=== PATIENT | male | born 1960 | race Caucasian/White ===

== ENCOUNTER 2022-06-19 04:35 | Emergency (ER) | payer OTHER ==
[~2022-06-19] VITALS: Ht 170.2 cm; Wt 51.0 kg
[~2022-06-19 04:35] MED LIST: NICO21DI6 TD; TIOT18INH INH; VICO5TAB17 PO
[2022-06-19] MEDS ORDERED: NS 1,000 ML IV ONE (05:10)
[2022-06-19 05:29] LABS: BASO # 0.1 10^3/uL (0.0-0.2); BASO % 0.2 % (0.0-1.0); EOS % 0.1 % (0.0-3.0); HEMATOCRIT 44.9 % (42.0-52.0); LYMPH # 0.9 10^3/uL (1.5-5.0); LYMPH % 4.2 % (24.0-44.0); MEAN CORPUSCULAR HEMOGLOBIN 30.9 pg (27.0-33.0); MEAN CORPUSCULAR HGB CONC 33.4 g/dl (32.0-36.5); MEAN CORPUSCULAR VOLUME 92.4 fl (80.0-96.0); MONO # 0.5 10^3/uL (0.0-0.8); MONO % 2.2 % (2.0-8.0); NEUTROPHILS # 19.8 10^3/uL (1.5-8.5); NEUTROPHILS % 92.6 % (36.0-66.0); PLATELET COUNT, AUTOMATED 582 10^3/uL (150-450); RED BLOOD COUNT 4.86 10^6/uL (4.30-6.10); WHITE BLOOD COUNT 21.4 10^3/uL (4.0-10.0)
[2022-06-19 05:38] VITALS: BP 132/86
[2022-06-19 05:44] LABS: INR 0.92; PARTIAL THROMBOPLASTIN TIME 32.8 SECONDS (24.8-34.2); PROTHROMBIN TIME 12.6 SECONDS (12.5-14.5)
[2022-06-19 05:56] LABS: CK-MB VALUE MASS < 1.0 NG/ML (<3.6)
[2022-06-19 05:57] LABS: BLOOD UREA NITROGEN 18 MG/DL (9-23); CALCIUM LEVEL 9.1 MG/DL (8.3-10.6); CARBON DIOXIDE LEVEL 23 MMOL/L (20-31); CHLORIDE LEVEL 98 MMOL/L (98-107); CREATININE FOR GFR 1.09 MG/DL (0.70-1.30); GLOMERULAR FILTRATION RATE > 60.0 (>49); GLUCOSE, FASTING 242 MG/DL (74-106); POTASSIUM SERUM 5.3 MMOL/L (3.5-5.1); SODIUM LEVEL 133 MMOL/L (136-145)
[2022-06-19 06:00] LABS: CPK CREATINE PHOSPHOKINASE 42 U/L (46-171); MB/CK RELATIVE INDEX 2.38 (< OR =4)
[2022-06-19 06:23] LABS: RSV AMPLIFICATION NEGATIVE (NEGATIVE)
[2022-06-19] MEDS ORDERED: IPRATROPIUM 0.5MG/ALBUTEROL 2.5MG INH SOL UD 3ML (DUONEB) NEB ONE (07:15)
[2022-06-19 07:17] LABS: CK-MB VALUE MASS < 1.0 NG/ML (<3.6)
[2022-06-19 07:21] LABS: CPK CREATINE PHOSPHOKINASE 35 U/L (46-171); MB/CK RELATIVE INDEX 2.85 (< OR =4)
[2022-06-19] MEDS ORDERED: ELIQ5TAB PO (09:18)
[2022-06-19] MEDS ORDERED: CARD40TA PO (09:19)
[2022-06-19] MEDS ORDERED: APIXABAN 5 MG TAB (ELIQUIS) PO ONE (09:20)
[2022-06-19] MEDS ORDERED: PERCOCET PO (09:27)
[2022-06-19] MEDS ORDERED: NICO2LOZ29 BUC (09:31)
[2022-06-19] MEDS ORDERED: FLUT1BLS2 INH (09:31)
[2022-06-19] MEDS ORDERED: METO37.5 PO (09:37)
[2022-06-19] MEDS ORDERED: ECOT81TA5 PO (09:37)
[2022-06-19] MEDS ORDERED: VENTAER INH (09:37)
[2022-06-19] MEDS ORDERED: OMEP10CASR PO (09:37)
[2022-06-19] MEDS ORDERED: AMOX875T2 PO (09:37)
[2022-06-19 09:51] VITALS: BP 135/76
== END 2022-06-19 10:05 | disposition home or self-care (01) ==
LOC: M ED 04:35
DX: I48.92 Unspecified atrial flutter (principal); Z87.891 Personal history of nicotine dependence; Z79.899 Other long term (current) drug therapy

== ENCOUNTER 2022-06-20 06:28 | Emergency (ER) | payer OTHER ==
[~2022-06-20] VITALS: Ht 170.2 cm; Wt 52.6 kg
[~2022-06-20 06:28] MED LIST changes: +AMOX875T2 PO; +CARD40TA PO; +ECOT81TA5 PO; +ELIQ5TAB PO; +FLUT1BLS2 INH; +METO37.5 PO; +NICO2LOZ29 BUC; +OMEP10CASR PO; +PERCOCET PO; +VENTAER INH
[2022-06-20 07:08] VITALS: BP 167/97
[2022-06-20 07:12] LABS: BASO % 0.1 % (0.0-1.0); HEMATOCRIT 42.9 % (42.0-52.0); HEMOGLOBIN 14.5 g/dl (13.5-17.5); LYMPH # 0.9 10^3/uL (1.5-5.0); LYMPH % 3.6 % (24.0-44.0); MEAN CORPUSCULAR HEMOGLOBIN 31.3 pg (27.0-33.0); MEAN CORPUSCULAR HGB CONC 33.8 g/dl (32.0-36.5); MEAN CORPUSCULAR VOLUME 92.7 fl (80.0-96.0); MONO # 0.5 10^3/uL (0.0-0.8); MONO % 2.2 % (2.0-8.0); NEUTROPHILS # 21.8 10^3/uL (1.5-8.5); NEUTROPHILS % 92.9 % (36.0-66.0); PLATELET COUNT, AUTOMATED 555 10^3/uL (150-450); RED BLOOD COUNT 4.63 10^6/uL (4.30-6.10); WHITE BLOOD COUNT 23.5 10^3/uL (4.0-10.0)
[2022-06-20 07:43] LABS: BLOOD UREA NITROGEN 22 MG/DL (9-23); CALCIUM LEVEL 9.7 MG/DL (8.3-10.6); CARBON DIOXIDE LEVEL 24 MMOL/L (20-31); CHLORIDE LEVEL 100 MMOL/L (98-107); CK-MB VALUE MASS < 1.0 NG/ML (<3.6); CPK CREATINE PHOSPHOKINASE 79 U/L (46-171); CREATININE FOR GFR 1.01 MG/DL (0.70-1.30); FREE T4 1.31 NG/DL (0.89-1.76); GLOMERULAR FILTRATION RATE > 60.0 (>49); GLUCOSE, FASTING 172 MG/DL (74-106); MB/CK RELATIVE INDEX 1.26 (< OR =4); POTASSIUM SERUM 5.6 MMOL/L (3.5-5.1); SODIUM LEVEL 134 MMOL/L (136-145); THYROID STIMULATING HORMONE 3.622 uIU/ML (0.55-4.78)
[2022-06-20 09:54] VITALS: BP 116/77
[2022-06-21] MEDS ORDERED: ELIQ5TAB PO (16:24)
[2022-06-21] MEDS ORDERED: CARD40TA PO (16:24)
== END 2022-06-20 10:09 | disposition home or self-care (01) ==
LOC: M ED 06:28
DX: I48.92 Unspecified atrial flutter (principal); I48.91 Unspecified atrial fibrillation; Z79.82 Long term (current) use of aspirin; Z79.01 Long term (current) use of anticoagulants; Z79.899 Other long term (current) drug therapy

== ENCOUNTER 2022-06-21 10:48 | Inpatient (IN) | payer OTHER ==
[~2022-06-21] VITALS: Ht 170.2 cm; Wt 51.4 kg
[2022-06-21] MEDS: predniSONE 20 MG TAB PO SCH (09:00)
[~2022-06-21 10:48] MED LIST changes: +AMIODARONE HCL 360 MG in IV 1 EA IV ONE
[2022-06-21 11:55] LABS: BASO % 0.1 % (0.0-1.0); HEMATOCRIT 40.9 % (42.0-52.0); HEMOGLOBIN 13.4 g/dl (13.5-17.5); LYMPH # 0.3 10^3/uL (1.5-5.0); LYMPH % 2.2 % (24.0-44.0); MEAN CORPUSCULAR HEMOGLOBIN 30.6 pg (27.0-33.0); MEAN CORPUSCULAR HGB CONC 32.8 g/dl (32.0-36.5); MEAN CORPUSCULAR VOLUME 93.4 fl (80.0-96.0); MONO # 0.3 10^3/uL (0.0-0.8); MONO % 2.2 % (2.0-8.0); NEUTROPHILS # 14.4 10^3/uL (1.5-8.5); PLATELET COUNT, AUTOMATED 494 10^3/uL (150-450); RED BLOOD COUNT 4.38 10^6/uL (4.30-6.10); WHITE BLOOD COUNT 15.2 10^3/uL (4.0-10.0)
[2022-06-21 12:05] LABS: ERYTHROCYTE SEDIMENTATION RATE 50 mm/hr (0-20)
[2022-06-21 12:16] LABS: INR 1.04; PROTHROMBIN TIME 13.8 SECONDS (12.5-14.5)
[2022-06-21 12:17] LABS: PARTIAL THROMBOPLASTIN TIME 29.6 SECONDS (24.8-34.2)
[2022-06-21 12:20] LABS: LIPASE 19 U/L (12-53)
[2022-06-21 12:21] LABS: CK-MB VALUE MASS < 1.0 NG/ML (<3.6)
[2022-06-21 12:23] LABS: ALBUMIN 3.4 G/DL (3.2-5.2); ALKALINE PHOSPHATASE 95 U/L (46-116); ALT/SGPT 23 U/L (7.0-40); AST/SGOT 10 U/L (<34); BILIRUBIN,DIRECT 0.2 MG/DL (<0.4); BILIRUBIN,TOTAL 0.4 MG/DL (0.3-1.2); BLOOD UREA NITROGEN 19 MG/DL (9-23); CALCIUM LEVEL 9.6 MG/DL (8.3-10.6); CARBON DIOXIDE LEVEL 27 MMOL/L (20-31); CHLORIDE LEVEL 99 MMOL/L (98-107); CPK CREATINE PHOSPHOKINASE 22 U/L (46-171); GLOMERULAR FILTRATION RATE > 60.0 (>49); GLUCOSE, FASTING 196 MG/DL (74-106); MB/CK RELATIVE INDEX 4.54 (< OR =4); POTASSIUM SERUM 4.8 MMOL/L (3.5-5.1); SODIUM LEVEL 135 MMOL/L (136-145)
[2022-06-21 12:24] LABS: FREE T4 1.17 NG/DL (0.89-1.76); THYROID STIMULATING HORMONE 3.151 uIU/ML (0.55-4.78)
[2022-06-21 12:28] LABS: RSV AMPLIFICATION NEGATIVE (NEGATIVE)
[2022-06-21 12:42] LABS: AMPHETAMINES LEVEL URINE NEGATIVE (NEGATIVE); BARBITURATES URINE NEGATIVE (NEGATIVE); BENZODIAZEPINES URINE NEGATIVE (NEGATIVE)
[2022-06-21 12:43] LABS: CANNABINOIDS URINE NEGATIVE (NEGATIVE); COCAINE METABOLITE URINE NEGATIVE (NEGATIVE); METHADONE URINE NEGATIVE (NEGATIVE); OPIATES URINE NEGATIVE (NEGATIVE); PHENCYCLIDINE URINE NEGATIVE (NEGATIVE)
[2022-06-21 14:08] LABS: CK-MB VALUE MASS < 1.0 NG/ML (<3.6); CPK CREATINE PHOSPHOKINASE 33 U/L (46-171); MB/CK RELATIVE INDEX 3.03 (< OR =4)
[2022-06-21] MEDS ORDERED: LEVALBUTEROL 1.25MG 0.5ML CONCENTRATE NEB NEB PRN (16:10)
[2022-06-21] MEDS ORDERED: CARD40TA PO (16:24)
[2022-06-21] MEDS ORDERED: ELIQ5TAB PO (16:24)
[2022-06-21] MEDS ORDERED: HOME MED LIST COMPLETE! XX SCH (16:25)
[2022-06-21] MEDS ORDERED: AMIODARONE HCL 150 MG in IV 1 EA IV STA ×2 (16:45→19:09)
[2022-06-21] MEDS ORDERED: NICOTINE 21MG/24HR 1 EA TRANSDERMAL TD ONE (17:00)
[2022-06-21] MEDS: AMIODARONE 200 MG TAB (PACERONE) PO SCH (17:26)
[2022-06-21] MEDS: PERCOCET 5MG/325MG TAB PO PRN (17:34)
[2022-06-21 17:35] VITALS: O2SAT 97
[2022-06-21] MEDS ORDERED: GLUCOSE 4GM CHEW TABLET PO PRN (17:35)
[2022-06-21] MEDS ORDERED: GLUCAGON INJ 1MG VIAL SC PRN (17:35)
[2022-06-21] MEDS ORDERED: DEXTROSE 50% 50ML SYRINGE IV PRN (17:35)
[2022-06-21] MEDS: cefTRIAXone SOD 1 GM in D5W MINI-BAG PLUS 50 ML IV SCH (17:56)
[2022-06-21 18:01] LABS: CHOLESTEROL LEVEL 166 MG/DL (<200); CHOLESTEROL RISK RATIO 2.54 (<5); HDL CHOLESTEROL 65.2 MG/DL (>40); LDL CHOLESTEROL 82.4 MG/DL (<100); NON-HDL-C 100.8 MG/DL; TRIGLYCERIDES LEVEL 92 MG/DL (<150)
[2022-06-21] MEDS: DOXYCYCLINE HYCLATE 100MG TABLET PO SCH (19:24)
[2022-06-21] MEDS ORDERED: AMIODARONE HCL 360 MG in IV 1 EA IV ONE (19:30)
[2022-06-21 19:56] LABS: HEMOGLOBIN A1c 6.3 % (4.0-6.0)
[2022-06-21 20:05] VITALS: BP 145/80
[2022-06-21] MEDS: LEVALBUTEROL 1.25MG 0.5ML CONCENTRATE NEB NEB SCH (20:12)
[2022-06-21] MEDS: ADVAIR HFA 115/21MCG INHALER INH SCH (20:13)
[2022-06-21] MEDS: APIXABAN 5 MG TAB (ELIQUIS) PO SCH (20:43)
[2022-06-21] MEDS: INSULIN LISPRO (NovoLOG) PER UNIT SC SCH ×2 (20:44→20:45)
[2022-06-21 23:57] VITALS: BP 102/69
[2022-06-22] VITALS (15 sets, daily range): BP systolic 110–193; BP diastolic 68–109
[2022-06-22] MEDS ORDERED: NYSTATIN 500,000U/5ML SUSP UDC SS ONE (00:15)
[2022-06-22 05:42] LABS: HEMATOCRIT 39.4 % (42.0-52.0); HEMOGLOBIN 12.9 g/dl (13.5-17.5); MEAN CORPUSCULAR HEMOGLOBIN 30.6 pg (27.0-33.0); MEAN CORPUSCULAR HGB CONC 32.7 g/dl (32.0-36.5); MEAN CORPUSCULAR VOLUME 93.6 fl (80.0-96.0); PLATELET COUNT, AUTOMATED 495 10^3/uL (150-450); RED BLOOD COUNT 4.21 10^6/uL (4.30-6.10); WHITE BLOOD COUNT 18.8 10^3/uL (4.0-10.0)
[2022-06-22] MEDS: DOXYCYCLINE HYCLATE 100MG TABLET PO SCH ×2 (05:55→17:06)
[2022-06-22] MEDS: PERCOCET 5MG/325MG TAB PO PRN ×2 (05:58→18:17)
[2022-06-22 06:08] LABS: ALBUMIN 3.2 G/DL (3.2-5.2); ALKALINE PHOSPHATASE 84 U/L (46-116); ALT/SGPT 15 U/L (7.0-40); AST/SGOT 11 U/L (<34); BILIRUBIN,TOTAL 0.6 MG/DL (0.3-1.2); BLOOD UREA NITROGEN 19 MG/DL (9-23); CALCIUM LEVEL 9.1 MG/DL (8.3-10.6); CARBON DIOXIDE LEVEL 29 MMOL/L (20-31); CHLORIDE LEVEL 100 MMOL/L (98-107); GLOMERULAR FILTRATION RATE > 60.0 (>49); GLUCOSE, FASTING 96 MG/DL (74-106); POTASSIUM SERUM 4.2 MMOL/L (3.5-5.1); SODIUM LEVEL 136 MMOL/L (136-145); TOTAL PROTEIN 6.4 G/DL (5.7-8.2)
[2022-06-22] MEDS: LEVALBUTEROL 1.25MG 0.5ML CONCENTRATE NEB NEB SCH ×3 (07:23→19:41)
[2022-06-22] MEDS: TIOTROPIUM INHALER/CAPSULE (SPIRIVA) INH SCH (07:24)
[2022-06-22] MEDS: ADVAIR HFA 115/21MCG INHALER INH SCH ×2 (07:24→19:41)
[2022-06-22] MEDS: INSULIN LISPRO (NovoLOG) PER UNIT SC SCH ×4 (07:30→20:26)
[2022-06-22] MEDS: predniSONE 20 MG TAB PO SCH (09:03)
[2022-06-22] MEDS: ASPIRIN 81MG ENTERIC TABLET PO SCH (09:03)
[2022-06-22] MEDS: OMEPRAZOLE 20MG CAP PO SCH (09:04)
[2022-06-22] MEDS: APIXABAN 5 MG TAB (ELIQUIS) PO SCH ×2 (09:04→20:29)
[2022-06-22] MEDS: METOPROLOL 5 MG/5 ML VIAL IV SCH ×3 (12:10→12:27)
[2022-06-22 13:12] LABS: CPK CREATINE PHOSPHOKINASE < 15 U/L (46-171)
[2022-06-22] MEDS: NYSTATIN 500,000U/5ML SUSP UDC SS SCH ×3 (14:06→20:28)
[2022-06-22] MEDS: AMIODARONE 200 MG TAB (PACERONE) PO SCH ×2 (17:05→20:29)
[2022-06-22] MEDS: cefTRIAXone SOD 1 GM in D5W MINI-BAG PLUS 50 ML IV SCH (17:06)
[2022-06-23 00:01] VITALS: BP 131/79
[2022-06-23 03:57] VITALS: BP 126/70
[2022-06-23] MEDS: DOXYCYCLINE HYCLATE 100MG TABLET PO SCH (05:08)
[2022-06-23] MEDS: PERCOCET 5MG/325MG TAB PO PRN (05:11)
[2022-06-23] MEDS: INSULIN LISPRO (NovoLOG) PER UNIT SC SCH (07:30)
[2022-06-23 07:38] LABS: HEMOGLOBIN 13.2 g/dl (13.5-17.5); MEAN CORPUSCULAR HEMOGLOBIN 30.9 pg (27.0-33.0); MEAN CORPUSCULAR VOLUME 93.7 fl (80.0-96.0); PLATELET COUNT, AUTOMATED 547 10^3/uL (150-450); RED BLOOD COUNT 4.27 10^6/uL (4.30-6.10); WHITE BLOOD COUNT 18.9 10^3/uL (4.0-10.0)
[2022-06-23 07:57] VITALS: BP 143/72
[2022-06-23] MEDS: LEVALBUTEROL 1.25MG 0.5ML CONCENTRATE NEB NEB SCH (08:00)
[2022-06-23] MEDS ORDERED: DOXY-444 PO (08:10)
[2022-06-23] MEDS ORDERED: AMIO200T49 PO (08:10)
[2022-06-23] MEDS ORDERED: CEFD300C41 PO (08:10)
[2022-06-23 08:12] LABS: BLOOD UREA NITROGEN 25 MG/DL (9-23); CALCIUM LEVEL 9.4 MG/DL (8.3-10.6); CARBON DIOXIDE LEVEL 29 MMOL/L (20-31); CHLORIDE LEVEL 99 MMOL/L (98-107); CK-MB VALUE MASS < 1.0 NG/ML (<3.6); CPK CREATINE PHOSPHOKINASE 26 U/L (46-171); CREATININE FOR GFR 1.16 MG/DL (0.70-1.30); GLOMERULAR FILTRATION RATE > 60.0 (>49); GLUCOSE, FASTING 120 MG/DL (74-106); MB/CK RELATIVE INDEX 3.84 (< OR =4); POTASSIUM SERUM 4.4 MMOL/L (3.5-5.1); SODIUM LEVEL 135 MMOL/L (136-145)
[2022-06-23] MEDS: ASPIRIN 81MG ENTERIC TABLET PO SCH (08:26)
[2022-06-23 08:27] VITALS: BP 143/72
[2022-06-23] MEDS: NYSTATIN 500,000U/5ML SUSP UDC SS SCH (08:27)
[2022-06-23] MEDS: AMIODARONE 200 MG TAB (PACERONE) PO SCH (08:27)
[2022-06-23] MEDS: predniSONE 20 MG TAB PO SCH (08:27)
[2022-06-23] MEDS: OMEPRAZOLE 20MG CAP PO SCH (08:28)
[2022-06-23] MEDS: APIXABAN 5 MG TAB (ELIQUIS) PO SCH (08:28)
[2022-06-23] MEDS: ADVAIR HFA 115/21MCG INHALER INH SCH (08:31)
[2022-06-23] MEDS: TIOTROPIUM INHALER/CAPSULE (SPIRIVA) INH SCH (08:31)
== END 2022-06-23 12:08 | disposition home or self-care (01) | DRG 308 ==
LOC: M ED 10:48 → EDBD 10:48 → M ED INP 16:10 → M PCU 20:03
PROVIDERS: ADMIT Internal Medicine; ATTEND Internal Medicine
DX: I48.92 Unspecified atrial flutter (principal); J18.9 Pneumonia, unspecified organism; J44.1 Chronic obstructive pulmonary disease with (acute) exacerbation; J44.0 Chronic obstructive pulmonary disease with (acute) lower respiratory infection; R64 Cachexia; Z68.1 Body mass index [BMI] 19.9 or less, adult; R73.9 Hyperglycemia, unspecified; I48.91 Unspecified atrial fibrillation; K21.9 Gastro-esophageal reflux disease without esophagitis; F17.210 Nicotine dependence, cigarettes, uncomplicated; G89.29 Other chronic pain; Z79.01 Long term (current) use of anticoagulants; Z79.82 Long term (current) use of aspirin; Z79.899 Other long term (current) drug therapy; Z20.822 Contact with and (suspected) exposure to COVID-19; Z85.810 Personal history of malignant neoplasm of tongue

== ENCOUNTER 2022-07-14 06:59 | Day surgery (SDC) | payer OTHER ==
[~2022-07-14] VITALS: Ht 172.7 cm; Wt 52.2 kg
[~2022-07-14 06:59] MED LIST changes: +AMIO200T49 PO; -AMIODARONE HCL 360 MG in IV 1 EA IV ONE; +CEFD300C41 PO; +D-101000 PO; +DOXY-444 PO; +OMEP-173 PO; +PRED5PAK PO
[2022-07-14] MEDS ORDERED: ALBUTEROL SULFATE 2.5MG/0.5ML INH NEB SOLN INH STA (07:39)
[2022-07-14] MEDS ORDERED: LR 1,000 ML IV SCH ×2 (07:40→09:50)
[2022-07-14] MEDS ORDERED: MIDAZOLAM INJ 2MG/2ML VIAL As Ordered ONE (07:53)
[2022-07-14] MEDS ORDERED: ROCURONIUM BROMIDE 50MG/5ML VIAL As Ordered ONE ×2 (07:53→09:19)
[2022-07-14] MEDS ORDERED: ONDANSETRON 4MG 2ML VIAL As Ordered ONE (07:53)
[2022-07-14] MEDS ORDERED: fentaNYL 100 MCG/2 ML INJECTION As Ordered ONE (07:53)
[2022-07-14] MEDS ORDERED: propofoL 200 MG/20 ML VIAL As Ordered ONE (07:53)
[2022-07-14] MEDS ORDERED: LIDOCAINE 2% 100MG/5ML SDV (FOR ANES.) As Ordered ONE (07:54)
[2022-07-14] MEDS ORDERED: CETACAINE SPRAY 5GM As Ordered ONE (08:02)
[2022-07-14] MEDS ORDERED: THROMBIN 5,000 UNITS VIAL As Ordered ONE (08:02)
[2022-07-14] MEDS ORDERED: EPINEPHrine 1MG/10ML SYRINGE 1.5IN As Ordered ONE (08:03)
[2022-07-14] MEDS ORDERED: SUGAMMADEX SODIUM 500 MG/5 ML VIAL (BRIDION) As Ordered ONE (09:25)
[2022-07-14] MEDS ORDERED: ONDANSETRON 4MG 2ML VIAL IV PRN (09:50)
[2022-07-14] MEDS ORDERED: fentaNYL 100 MCG/2 ML INJECTION IV PRN (09:50)
[2022-07-14] MEDS ORDERED: oxyCODONE 5MG TAB PO PRN (09:50)
[2022-07-14 10:31] VITALS: BP 113/64
== END 2022-07-14 10:50 | disposition home or self-care (01) ==
LOC: M SDC 06:59
PROVIDERS: ATTEND Internal Medicine Pulmonary Disease
DX: C34.12 Malignant neoplasm of upper lobe, left bronchus or lung (principal); J44.9 Chronic obstructive pulmonary disease, unspecified; I48.91 Unspecified atrial fibrillation; K21.9 Gastro-esophageal reflux disease without esophagitis; Z79.01 Long term (current) use of anticoagulants; G40.909 Epilepsy, unspecified, not intractable, without status epilepticus; Z85.810 Personal history of malignant neoplasm of tongue; Z87.891 Personal history of nicotine dependence; Z79.52 Long term (current) use of systemic steroids; Z79.51 Long term (current) use of inhaled steroids; Z79.899 Other long term (current) drug therapy
CPT/HCPCS: 31628; 31641; 31654; 71045; 76000; 87070; 87077; 87102; 87116; 87186; 87205; 87206; 88104; 88173; 88305; J1100; J2250; J2405; J3010

== ENCOUNTER → 2022-07-26 | Outpatient (CLI) | payer OTHER | LOC: M PLARAD 10:25 | PROVIDERS: ATTEND Internal Medicine Pulmonary Disease | DX: R91.8 Other nonspecific abnormal finding of lung field (principal); J98.11 Atelectasis; C79.89 Secondary malignant neoplasm of other specified sites | CPT/HCPCS: 78815; A9552 ==

== ENCOUNTER → 2022-07-30 | Outpatient (CLI) | payer OTHER | LOC: M ONCR 07:41 | PROVIDERS: ATTEND General Practice | DX: C34.12 Malignant neoplasm of upper lobe, left bronchus or lung (principal); I48.91 Unspecified atrial fibrillation; Z77.090 Contact with and (suspected) exposure to asbestos; Z79.51 Long term (current) use of inhaled steroids; Z79.891 Long term (current) use of opiate analgesic; Z79.899 Other long term (current) drug therapy; Z85.819 Personal history of malignant neoplasm of unspecified site of lip, oral cavity, and pharynx; Z87.891 Personal history of nicotine dependence; Z90.49 Acquired absence of other specified parts of digestive tract ==

== ENCOUNTER → 2022-08-09 | Outpatient (CLI) | payer OTHER ==
[~2022-08-09] VITALS: Ht 172.7 cm; Wt 54.0 kg
[~2022-08-09] MED LIST changes: +LIDOCAINE 1% MDV 20ML VIAL As Ordered ONE; +MIDAZOLAM INJ 2MG/2ML VIAL As Ordered ONE; +NS 1,000 ML IV SCH; +ceFAZolin 2 GM/D5W 50 ML IV BAG As Ordered ONE; +ceFAZolin SOD 2 GM in IV 1 EA IV ONE; +diphenhydrAMINE 50MG/ML VIAL As Ordered ONE; +fentaNYL 100 MCG/2 ML INJECTION As Ordered ONE
[2022-08-09 10:48] VITALS: BP 116/66
== END ==
LOC: M IRPRO 07:05
PROVIDERS: ATTEND Specialist
DX: C34.90 Malignant neoplasm of unspecified part of unspecified bronchus or lung (principal)
CPT/HCPCS: 36561; 99152; 99153; C1769; C1788; C1894; J0690; J1200; J2250; J3010

== ENCOUNTER → 2022-08-16 | Outpatient (CLI) | payer OTHER ==
[~2022-08-16] MED LIST changes: -LIDOCAINE 1% MDV 20ML VIAL As Ordered ONE; -MIDAZOLAM INJ 2MG/2ML VIAL As Ordered ONE; -NS 1,000 ML IV SCH; +PROHANCE 279.3MG/ML 15ML VIAL As Ordered ONE; -ceFAZolin 2 GM/D5W 50 ML IV BAG As Ordered ONE; -ceFAZolin SOD 2 GM in IV 1 EA IV ONE; -diphenhydrAMINE 50MG/ML VIAL As Ordered ONE; -fentaNYL 100 MCG/2 ML INJECTION As Ordered ONE
== END ==
LOC: M RAD 12:43
PROVIDERS: ATTEND General Practice
DX: C34.12 Malignant neoplasm of upper lobe, left bronchus or lung (principal); G93.89 Other specified disorders of brain; H74.91 Unspecified disorder of right middle ear and mastoid
CPT/HCPCS: 70553; A9576

== ENCOUNTER → 2022-08-31 | Outpatient (POV) | payer OTHER ==
[~2022-08-31] VITALS: Ht 170.2 cm; Wt 54.5 kg
[~2022-08-31] MED LIST changes: +ONDA-84 PO; +PROC10TA5 PO; -PROHANCE 279.3MG/ML 15ML VIAL As Ordered ONE
[2022-08-31 08:00] VITALS: BP 146/77
== END ==
LOC: M IRPOV 07:53
PROVIDERS: ATTEND Radiology Diagnostic Radiology
DX: Z45.2 Encounter for adjustment and management of vascular access device (principal)

== ENCOUNTER 2022-09-04 14:55 | Inpatient (IN) | payer OTHER ==
[~2022-09-04] VITALS: Ht 170.2 cm; Wt 54.7 kg
[2022-09-04] MEDS ORDERED: methylPREDNISolone 125MG 2ML VIAL IV ONE (15:05)
[2022-09-04] MEDS ORDERED: NS 1,640 ML in IV 1 EA IV ONE (15:40)
[2022-09-04] MEDS ORDERED: ACETAMINOPHEN 500 MG TAB PO ONE (15:40)
[2022-09-04] MEDS ORDERED: cefTRIAXone SOD 2 GM in D5W MINI-BAG PLUS 50 ML IV ONE (15:40)
[2022-09-04 16:11] LABS: VENOUS BASE EXCESS 3.2 (-2.0-2.0); VENOUS O2 SATURATION 94.9 % (60.0-80.0); VENOUS PARTIAL PRESSURE CO2 37.9 mmHg (38.0-50.0); VENOUS PARTIAL PRESSURE O2 76.7 mmHg (30.0-50.0); VENOUS STANDARD HCO3 27.3 MMOL/L; VENOUS TOTAL CO2 28.1 MMOL/L (24.0-28.0)
[2022-09-04 16:14] LABS: HEMATOCRIT 27.7 % (42.0-52.0); HEMOGLOBIN 9.8 g/dl (13.5-17.5); LYMPH # 0.1 10^3/uL (1.5-5.0); LYMPH % 19.4 % (24.0-44.0); MEAN CORPUSCULAR HEMOGLOBIN 31.8 pg (27.0-33.0); MEAN CORPUSCULAR HGB CONC 35.4 g/dl (32.0-36.5); MEAN CORPUSCULAR VOLUME 89.9 fl (80.0-96.0); MONO # 0.1 10^3/uL (0.0-0.8); MONO % 22.6 % (2.0-8.0); PLATELET COUNT, AUTOMATED 130 10^3/uL (150-450); RED BLOOD COUNT 3.08 10^6/uL (4.30-6.10)
[2022-09-04 16:25] LABS: NEUTROPHILS # 0.2 10^3/uL (1.5-8.5); WHITE BLOOD COUNT 0.3 10^3/uL (4.0-10.0)
[2022-09-04 16:44] LABS: ALBUMIN 2.2 G/DL (3.2-5.2); BILIRUBIN,DIRECT 0.4 MG/DL (<0.4); BILIRUBIN,TOTAL 0.6 MG/DL (0.3-1.2); CALCIUM LEVEL 7.7 MG/DL (8.3-10.6); CREATININE FOR GFR 1.34 MG/DL (0.70-1.30); GLOMERULAR FILTRATION RATE 57.7 (>49); TOTAL PROTEIN 4.9 G/DL (5.7-8.2)
[2022-09-04 16:46] LABS: THYROID STIMULATING HORMONE 2.871 uIU/ML (0.55-4.78)
[2022-09-04] MEDS: IPRATROPIUM 0.5MG/ALBUTEROL 2.5MG INH SOL UD 3ML (DUONEB) NEB PRN ×2 (16:47→16:57)
[2022-09-04] MEDS ORDERED: ISOVUE-370 76% 100ML VIAL As Ordered ONE (16:54)
[2022-09-04] MEDS ORDERED: PRED5TA PO (17:27)
[2022-09-04] MEDS ORDERED: HOME MED LIST COMPLETE! XX SCH (17:30)
[2022-09-04] MEDS ORDERED: VANCOMYCIN HCL 1,000 MG, VIAL MATE ADAPTER 1 EACH in D5W 250 ML IV SCH (17:55)
[2022-09-04] MEDS ORDERED: ALBUTEROL SULFATE 2.5MG/0.5ML INH NEB SOLN NEB PRN (17:55)
[2022-09-04 18:32] LABS: C REACTIVE PROTEIN QUANTITATIV 16.2 MG/DL (<1.0)
[2022-09-04] MEDS ORDERED: ACETAMINOPHEN TAB 650MG DOSE (2X325MG) PO PRN (19:10)
[2022-09-04] MEDS ORDERED: oxyCODONE 5MG TAB PO PRN (19:10)
[2022-09-04] MEDS ORDERED: VANCOMYCIN HCL 1,000 MG, VIAL MATE ADAPTER 1 EACH in D5W 250 ML IV ONE (20:00)
[2022-09-04] MEDS: SYMBICORT 160/4.5MCG INHALER 6GM INH SCH (20:16)
[2022-09-04] MEDS ORDERED: NS 500 ML IV ONE (21:45)
[2022-09-04 22:34] VITALS: BP 132/67
[2022-09-04] MEDS ORDERED: FILGRASTIM 480 MCG/0.8 ML SYRINGE **SC ADMINISTRATION ONLY SC ONE (23:00)
[2022-09-04 23:30] VITALS: O2SAT 95
[2022-09-04] MEDS: IPRATROPIUM 0.5MG/ALBUTEROL 2.5MG INH SOL UD 3ML (DUONEB) NEB SCH (23:31)
[2022-09-04] MEDS: CEFEPIME HCL 2 GM in D5W MINI-BAG PLUS 50 ML IV SCH (23:47)
[2022-09-05] MEDS ORDERED: FILGRASTIM 300MCG 0.5ML SYRINGE **SC ADMINISTRATION ONLY SC ONE (01:00)
[2022-09-05] MEDS: IPRATROPIUM 0.5MG/ALBUTEROL 2.5MG INH SOL UD 3ML (DUONEB) NEB SCH ×6 (03:30→23:26)
[2022-09-05 03:55] VITALS: BP 112/67
[2022-09-05] MEDS: methylPREDNISolone 40MG 1ML VIAL IV SCH ×3 (05:22→22:02)
[2022-09-05 06:44] LABS: HEMATOCRIT 24.3 % (42.0-52.0); HEMOGLOBIN 8.5 g/dl (13.5-17.5); LYMPH % 7.1 % (24.0-44.0); MEAN CORPUSCULAR HEMOGLOBIN 31.5 pg (27.0-33.0); MONO # 0.1 10^3/uL (0.0-0.8); MONO % 12.5 % (2.0-8.0); NEUTROPHILS % 80.4 % (36.0-66.0)
[2022-09-05 06:46] LABS: NEUTROPHILS # 0.5 10^3/uL (1.5-8.5); PLATELET COUNT, AUTOMATED 98 10^3/uL (150-450); WHITE BLOOD COUNT 0.6 10^3/uL (4.0-10.0)
[2022-09-05 07:17] LABS: BLOOD UREA NITROGEN 16 MG/DL (9-23); CALCIUM LEVEL 7.3 MG/DL (8.3-10.6); CARBON DIOXIDE LEVEL 24 MMOL/L (20-31); CHLORIDE LEVEL 101 MMOL/L (98-107); CREATININE FOR GFR 0.98 MG/DL (0.70-1.30); GLOMERULAR FILTRATION RATE > 60.0 (>49); GLUCOSE, FASTING 262 MG/DL (74-106); POTASSIUM SERUM 3.5 MMOL/L (3.5-5.1); SODIUM LEVEL 132 MMOL/L (136-145)
[2022-09-05] MEDS: SYMBICORT 160/4.5MCG INHALER 6GM INH SCH ×2 (07:21→19:24)
[2022-09-05] MEDS: VANCOMYCIN HCL 500 MG in D5W MINI-BAG PLUS 100 ML IV SCH ×2 (08:00→20:16)
[2022-09-05] MEDS ORDERED: TIOTROPIUM INHALER/CAPSULE (SPIRIVA) INH SCH (08:00)
[2022-09-05 08:14] VITALS: BP 113/63
[2022-09-05] MEDS: OMEPRAZOLE 20MG CAP PO SCH (08:19)
[2022-09-05] MEDS: oxyCODONE 5MG TAB PO PRN (08:20)
[2022-09-05] MEDS ORDERED: predniSONE 5 MG TAB PO SCH (09:00)
[2022-09-05] MEDS: CEFEPIME HCL 2 GM in D5W MINI-BAG PLUS 50 ML IV SCH ×2 (10:01→20:15)
[2022-09-05] MEDS: NYSTATIN 500,000U/5ML SUSP UDC SS SCH ×3 (11:23→20:15)
[2022-09-05 12:18] VITALS: BP 122/67
[2022-09-05 15:59] VITALS: BP 112/71
[2022-09-05 20:00] VITALS: BP 119/68
[2022-09-05] MEDS ORDERED: FILGRASTIM 300MCG 0.5ML SYRINGE **SC ADMINISTRATION ONLY SC SCH (23:00)
[2022-09-05 23:58] VITALS: BP 132/75
[2022-09-06] VITALS (7 sets, daily range): BP systolic 115–145; BP diastolic 66–80
[2022-09-06] MEDS: IPRATROPIUM 0.5MG/ALBUTEROL 2.5MG INH SOL UD 3ML (DUONEB) NEB SCH ×6 (03:59→23:24)
[2022-09-06 04:55] LABS: HEMATOCRIT 23.9 % (42.0-52.0); HEMOGLOBIN 8.3 g/dl (13.5-17.5); MEAN CORPUSCULAR HEMOGLOBIN 31.3 pg (27.0-33.0); MEAN CORPUSCULAR HGB CONC 34.7 g/dl (32.0-36.5); MEAN CORPUSCULAR VOLUME 90.2 fl (80.0-96.0); PLATELET COUNT, AUTOMATED 105 10^3/uL (150-450); RED BLOOD COUNT 2.65 10^6/uL (4.30-6.10); WHITE BLOOD COUNT 2.5 10^3/uL (4.0-10.0)
[2022-09-06 05:15] LABS: BLOOD UREA NITROGEN 21 MG/DL (9-23); CALCIUM LEVEL 7.7 MG/DL (8.3-10.6); CARBON DIOXIDE LEVEL 24 MMOL/L (20-31); CHLORIDE LEVEL 101 MMOL/L (98-107); CREATININE FOR GFR 0.87 MG/DL (0.70-1.30); GLOMERULAR FILTRATION RATE > 60.0 (>49); GLUCOSE, FASTING 249 MG/DL (74-106); POTASSIUM SERUM 3.5 MMOL/L (3.5-5.1); SODIUM LEVEL 133 MMOL/L (136-145)
[2022-09-06 05:17] LABS: ANISOCYTOSIS 1+; LYMPHOCYTES 5 % (16-44); MONOCYTES 9 % (0-5); NEUTROPHILS 74 % (28-66); PLATELET ESTIMATE DECREASED (NORMAL); POIKILOCYTOSIS 1+
[2022-09-06 05:18] LABS: POLYCHROMASIA 1+
[2022-09-06] MEDS: methylPREDNISolone 40MG 1ML VIAL IV SCH ×2 (05:38→18:03)
[2022-09-06] MEDS ORDERED: FUROSEMIDE 40MG/4ML VIAL IV ONE (07:20)
[2022-09-06] MEDS: SYMBICORT 160/4.5MCG INHALER 6GM INH SCH ×2 (07:25→19:53)
[2022-09-06] MEDS: NYSTATIN 500,000U/5ML SUSP UDC SS SCH ×3 (09:00→21:16)
[2022-09-06] MEDS: MOM 30ML SUSPENSION UDC PO SCH (09:00)
[2022-09-06] MEDS: CEFEPIME HCL 2 GM in D5W MINI-BAG PLUS 50 ML IV SCH ×2 (09:00→21:17)
[2022-09-06] MEDS: oxyCODONE 5MG TAB PO PRN ×2 (09:01→18:39)
[2022-09-06] MEDS: OMEPRAZOLE 20MG CAP PO SCH (09:02)
[2022-09-06] MEDS: SENOKOT S TAB PO SCH ×2 (09:02→21:16)
[2022-09-06] MEDS: MAGIC MOUTHWASH SUSPENSION BTL SS PRN ×2 (16:26→21:17)
[2022-09-07] VITALS (19 sets, daily range): BP systolic 113–134; BP diastolic 70–78; O2SAT 82–94
[2022-09-07] MEDS: IPRATROPIUM 0.5MG/ALBUTEROL 2.5MG INH SOL UD 3ML (DUONEB) NEB SCH ×4 (03:02→15:11)
[2022-09-07] MEDS: oxyCODONE 5MG TAB PO PRN ×3 (03:28→15:27)
[2022-09-07] MEDS: methylPREDNISolone 40MG 1ML VIAL IV SCH (05:58)
[2022-09-07] MEDS: MAGIC MOUTHWASH SUSPENSION BTL SS PRN (05:59)
[2022-09-07 06:05] LABS: HEMATOCRIT 27.3 % (42.0-52.0); HEMOGLOBIN 9.4 g/dl (13.5-17.5); MEAN CORPUSCULAR HEMOGLOBIN 30.9 pg (27.0-33.0); MEAN CORPUSCULAR HGB CONC 34.4 g/dl (32.0-36.5); MEAN CORPUSCULAR VOLUME 89.8 fl (80.0-96.0); PLATELET COUNT, AUTOMATED 194 10^3/uL (150-450); RED BLOOD COUNT 3.04 10^6/uL (4.30-6.10); WHITE BLOOD COUNT 7.7 10^3/uL (4.0-10.0)
[2022-09-07 06:40] LABS: BLOOD UREA NITROGEN 32 MG/DL (9-23); CALCIUM LEVEL 8.1 MG/DL (8.3-10.6); CARBON DIOXIDE LEVEL 26 MMOL/L (20-31); CHLORIDE LEVEL 97 MMOL/L (98-107); CREATININE FOR GFR 0.83 MG/DL (0.70-1.30); GLOMERULAR FILTRATION RATE > 60.0 (>49); GLUCOSE, FASTING 254 MG/DL (74-106); POTASSIUM SERUM 3.8 MMOL/L (3.5-5.1); SODIUM LEVEL 133 MMOL/L (136-145)
[2022-09-07] MEDS: SYMBICORT 160/4.5MCG INHALER 6GM INH SCH (07:17)
[2022-09-07 07:38] LABS: METAMYELOCYTES 2 % (0-0); MONOCYTES 3 % (0-5); NEUTROPHILS 73 % (28-66)
[2022-09-07 07:39] LABS: ANISOCYTOSIS 1+; HYPOCHROMASIA 1+
[2022-09-07 07:40] LABS: PLATELET ESTIMATE NORMAL (NORMAL)
[2022-09-07] MEDS: CEFEPIME HCL 2 GM in D5W MINI-BAG PLUS 50 ML IV SCH (08:28)
[2022-09-07] MEDS: OMEPRAZOLE 20MG CAP PO SCH (08:31)
[2022-09-07] MEDS: SENOKOT S TAB PO SCH (08:31)
[2022-09-07] MEDS: MOM 30ML SUSPENSION UDC PO SCH (08:32)
[2022-09-07] MEDS: NYSTATIN 500,000U/5ML SUSP UDC SS SCH (08:32)
[2022-09-07] MEDS ORDERED: AZITHROMYCIN 250MG TABLET PO SCH (09:00)
[2022-09-07] MEDS ORDERED: MAGICMW SS ×2 (12:09→15:55)
[2022-09-07] MEDS ORDERED: NYST-38 SS ×2 (12:09→15:55)
[2022-09-07] MEDS ORDERED: CEFD300CAP PO ×2 (12:09→15:50)
[2022-09-07] MEDS ORDERED: CARD40TA PO (12:09)
[2022-09-07] MEDS ORDERED: AZIT500T5 PO ×2 (12:09→15:50)
[2022-09-07] MEDS ORDERED: PRED20TA PO ×2 (12:09→15:53)
[2022-09-07] MEDS ORDERED: SENN-186 PO ×2 (12:09→15:53)
[2022-09-07] MEDS ORDERED: IPRA0.00 NEB (12:09)
[2022-09-07] MEDS ORDERED: PROBCAP14 PO ×2 (12:09→15:53)
[2022-09-07] MEDS ORDERED: COLA100C5 PO ×2 (12:09→15:53)
[2022-09-07] MEDS ORDERED: CEFDINIR 300 MG CAP (OMNICEF) PO SCH (21:00)
== END 2022-09-07 16:13 | disposition home health service (06) | DRG 871 ==
LOC: EDBD 14:55 → M ED 14:55 → M ED INP 17:55 → M PCU 22:33
PROVIDERS: ADMIT Internal Medicine Nephrology; ATTEND Internal Medicine Nephrology
DX: A41.9 Sepsis, unspecified organism (principal); J96.01 Acute respiratory failure with hypoxia; E43 Unspecified severe protein-calorie malnutrition; J18.9 Pneumonia, unspecified organism; D61.810 Antineoplastic chemotherapy induced pancytopenia; J98.11 Atelectasis; Z68.1 Body mass index [BMI] 19.9 or less, adult; I48.92 Unspecified atrial flutter; J44.1 Chronic obstructive pulmonary disease with (acute) exacerbation; B37.0 Candidal stomatitis; C34.92 Malignant neoplasm of unspecified part of left bronchus or lung; J44.0 Chronic obstructive pulmonary disease with (acute) lower respiratory infection; C79.89 Secondary malignant neoplasm of other specified sites; D70.9 Neutropenia, unspecified; G89.29 Other chronic pain; M54.9 Dorsalgia, unspecified; Z79.891 Long term (current) use of opiate analgesic; K59.00 Constipation, unspecified; Z79.899 Other long term (current) drug therapy; I48.91 Unspecified atrial fibrillation; Z92.3 Personal history of irradiation; Z92.21 Personal history of antineoplastic chemotherapy

== ENCOUNTER → 2022-09-08 | Outpatient (RCR) | payer OTHER ==
[~2022-09-08] MED LIST changes: +AZIT500T5 PO; +CEFD300CAP PO; +COLA100C5 PO; +IPRA0.00 NEB; +MAGICMW SS; +NYST-38 SS; +PRED20TA PO; +PRED5TA PO; +PROBCAP14 PO; +SENN-186 PO
== END ==
LOC: M ONCR 08-11 10:09
PROVIDERS: ATTEND General Practice
DX: C34.12 Malignant neoplasm of upper lobe, left bronchus or lung (principal)

== ENCOUNTER 2022-10-04 08:15 | Outpatient (RCR) | payer OTHER ==
[~2022-10-04 08:15] MED LIST changes: +LASI20TA3 PO
== END 2022-10-08 ==
LOC: M ONCR 08:15
PROVIDERS: ATTEND General Practice
DX: C34.12 Malignant neoplasm of upper lobe, left bronchus or lung (principal)

== ENCOUNTER → 2022-10-07 | Outpatient (CLI) | payer OTHER | LOC: M CARPUL 11:22 | PROVIDERS: ATTEND Specialist | DX: J81.0 Acute pulmonary edema (principal); C34.90 Malignant neoplasm of unspecified part of unspecified bronchus or lung ==

== ENCOUNTER → 2023-02-04 | Outpatient (CLI) | payer OTHER ==
[~2023-02-04] MED LIST changes: -CEFD300C41 PO; +CEFD300C42 PO; +ELIQ5TAB; +IRON1TAB2 PO; +ISOVUE-370 76% 100ML VIAL As Ordered ONE; +LIDO30CR18 TOP; +MAGN400C PO
== END ==
LOC: M RAD 08:39
PROVIDERS: ATTEND Specialist
DX: C34.90 Malignant neoplasm of unspecified part of unspecified bronchus or lung (principal); J90 Pleural effusion, not elsewhere classified; J43.2 Centrilobular emphysema
CPT/HCPCS: 71260; Q9967

== ENCOUNTER → 2023-03-08 | Outpatient (CLI) | payer OTHER ==
[~2023-03-08] MED LIST changes: -ISOVUE-370 76% 100ML VIAL As Ordered ONE
[2023-03-08 13:20] VITALS: TEMP 99.8
[2023-03-08 16:20] VITALS: BP 102/72; O2SAT 96
== END ==
LOC: M IRPRO 13:02
PROVIDERS: ATTEND Internal Medicine Medical Oncology
DX: J90 Pleural effusion, not elsewhere classified (principal); C34.90 Malignant neoplasm of unspecified part of unspecified bronchus or lung

== ENCOUNTER 2023-03-20 14:54 | Inpatient (IN) | payer OTHER ==
[~2023-03-20] VITALS: Ht 170.2 cm; Wt 51.8 kg
[~2023-03-20 14:54] MED LIST changes: +CEFD1CAP9 PO; -CEFD300C42 PO
[2023-03-20] MEDS ORDERED: PROPOFOL 1,000 MG/100 ML VIAL As Ordered ONE (15:04)
[2023-03-20] MEDS ORDERED: propofoL 1,000 MG in IV 1 EA IV SCH (15:10)
[2023-03-20] MEDS ORDERED: LIDOCAINE 2% 5ML JELLY UROJET TOP ONE ×2 (15:10→15:55)
[2023-03-20] MEDS ORDERED: ETOMIDATE INJ 20MG/10ML VIAL IV ONE (15:10)
[2023-03-20] MEDS ORDERED: AZITHROMYCIN INJ 500 MG, VIAL MATE ADAPTER 1 EACH in D5W 250 ML IV ONE (15:10)
[2023-03-20] MEDS ORDERED: SUCCINYLCHOLINE INJ 200MG/10ML VIAL IV ONE ×2 (15:10→18:00)
[2023-03-20] MEDS ORDERED: cefTRIAXone SOD 2 GM in D5W MINI-BAG PLUS 50 ML IV ONE (15:10)
[2023-03-20] MEDS ORDERED: fentaNYL 100 MCG/2 ML INJECTION IV ONE (15:25)
[2023-03-20] MEDS: IPRATROPIUM 0.5MG/ALBUTEROL 2.5MG INH SOL UD 3ML (DUONEB) NEB PRN ×3 (15:26→16:04)
[2023-03-20] MEDS ORDERED: fentaNYL CITRATE/NaCl 1,000 MCG in IV 1 EA IV SCH (15:30)
[2023-03-20] MEDS ORDERED: LIDOCAINE 2% MDV 20ML VIAL SC ONE (15:30)
[2023-03-20] MEDS ORDERED: FENTANYL DRIP LOCK BOX KEY 1 EACH XX PRN ×2 (15:30→21:25)
[2023-03-20] MEDS ORDERED: MIDAZOLAM INJ 2MG/2ML VIAL IV ONE ×2 (15:35→18:25)
[2023-03-20 15:37] LABS: BASO # 0.2 10^3/uL (0.0-0.2); BASO % 0.8 % (0.0-1.0); EOS # 0.1 10^3/uL (0.0-0.5); EOS % 0.6 % (0.0-3.0); HEMATOCRIT 40.4 % (42.0-52.0); HEMOGLOBIN 12.7 g/dl (13.5-17.5); LYMPH # 1.8 10^3/uL (1.5-5.0); LYMPH % 9.3 % (24.0-44.0); MEAN CORPUSCULAR HEMOGLOBIN 29.1 pg (27.0-33.0); MEAN CORPUSCULAR HGB CONC 31.4 g/dl (32.0-36.5); MEAN CORPUSCULAR VOLUME 92.4 fl (80.0-96.0); MONO # 0.5 10^3/uL (0.0-0.8); MONO % 2.6 % (2.0-8.0); NEUTROPHILS # 16.7 10^3/uL (1.5-8.5); NEUTROPHILS % 85.6 % (36.0-66.0); PLATELET COUNT, AUTOMATED 750 10^3/uL (150-450); RED BLOOD COUNT 4.37 10^6/uL (4.30-6.10); WHITE BLOOD COUNT 19.5 10^3/uL (4.0-10.0)
[2023-03-20 15:49] LABS: CK-MB VALUE MASS < 1.0 NG/ML (<3.6)
[2023-03-20] MEDS ORDERED: NS 1,840 ML in IV 1 EA IV ONE (15:50)
[2023-03-20 15:52] LABS: CPK CREATINE PHOSPHOKINASE 43 U/L (46-171); MB/CK RELATIVE INDEX 2.32 (< OR =4)
[2023-03-20 16:05] LABS: ETHYL ALCOHOL (ETHANOL) < 0.003 % (0.000-0.010)
[2023-03-20 16:11] LABS: ALBUMIN 3.5 G/DL (3.2-5.2); ALKALINE PHOSPHATASE 123 U/L (46-116); ALT/SGPT 14 U/L (7.0-40); AST/SGOT 22 U/L (<34); BILIRUBIN,DIRECT < 0.1 MG/DL (<0.4); BILIRUBIN,TOTAL 0.3 MG/DL (0.3-1.2); BLOOD UREA NITROGEN 14 MG/DL (9-23); CALCIUM LEVEL 9.3 MG/DL (8.3-10.6); CARBON DIOXIDE LEVEL 22 MMOL/L (20-31); CHLORIDE LEVEL 103 MMOL/L (98-107); GLOMERULAR FILTRATION RATE > 60.0 (>49); GLUCOSE, FASTING 309 MG/DL (74-106); MAGNESIUM LEVEL 2.2 MG/DL (1.8-2.4); SODIUM LEVEL 135 MMOL/L (136-145); THYROID STIMULATING HORMONE 1.167 uIU/ML (0.55-4.78); TOTAL PROTEIN 7.8 G/DL (5.7-8.2)
[2023-03-20 16:13] LABS: INR 1.1; PROTHROMBIN TIME 13.9 SECONDS (12.5-14.5)
[2023-03-20] MEDS ORDERED: MIDAZOLAM 100MG/100ML-0.9%NACL 100 MG in IV 1 EA IV SCH ×3 (16:20→21:25)
[2023-03-20 16:23] LABS: ABG BASE EXCESS -9.6 (-2.0-2.0); ABG HCO3 16.6 MMOL/L (22.0-26.0); ABG O2 SATURATION 99.5 % (95.0-99.0); ABG PARTIAL PRESSURE CO2 37.6 mmHg (35.0-45.0); ABG PARTIAL PRESSURE O2 344.9 mmHg (75.0-100.0); ABG STANDARD HCO3 16.8 MMOL/L. (22.0-26.0); ABG TOTAL CO2 17.8 MMOL/L (23.0-31.0); ABG pH (ARTERIAL) 7.263 UNITS (7.350-7.450)
[2023-03-20] MEDS ORDERED: ISOVUE-370 76% 100ML VIAL As Ordered ONE (16:27)
[2023-03-20] MEDS ORDERED: VECURONIUM BROMIDE 10MG VIAL IV ONE (16:45)
[2023-03-20 17:29] LABS: OSMOLALITY SERUM 306 MOSM/KG (280-301)
[2023-03-20 17:30] LABS: SALICYLATE LEVEL < 3.0 MG/DL (<30)
[2023-03-20] MEDS ORDERED: DILT30TA PO (18:01)
[2023-03-20] MEDS ORDERED: CENT1TAB2 PO (18:02)
[2023-03-20] MEDS ORDERED: HOME MED LIST COMPLETE! XX SCH (18:05)
[2023-03-20 20:00] VITALS: BP 116/83; TEMP 97.6; O2SAT 99
[2023-03-20 20:14] VITALS: O2SAT 100
[2023-03-20] MEDS: MIDAZOLAM INJ 2MG/2ML VIAL IV PRN (20:24)
[2023-03-20 21:00] VITALS: BP 97/65; O2SAT 99
[2023-03-20 21:12] LABS: CK-MB VALUE MASS 2.1 NG/ML (<3.6)
[2023-03-20 21:13] LABS: MB/CK RELATIVE INDEX 1.7 (< OR =4)
[2023-03-20] MEDS: IPRATROPIUM 0.5MG/ALBUTEROL 2.5MG INH SOL UD 3ML (DUONEB) NEB SCH (21:39)
[2023-03-20 21:59] LABS: ABG BASE EXCESS -4.3 (-2.0-2.0); ABG O2 SATURATION 97.7 % (95.0-99.0); ABG PARTIAL PRESSURE CO2 39.6 mmHg (35.0-45.0); ABG PARTIAL PRESSURE O2 107.1 mmHg (75.0-100.0); ABG STANDARD HCO3 20.9 MMOL/L. (22.0-26.0); ABG TOTAL CO2 22.2 MMOL/L (23.0-31.0); ABG pH (ARTERIAL) 7.343 UNITS (7.350-7.450)
[2023-03-20 22:00] VITALS: BP 97/53; O2SAT 99
[2023-03-20] MEDS: fentaNYL CITRATE/NaCl 1,000 MCG in IV 1 EA IV SCH (22:04)
[2023-03-20 23:00] VITALS: BP 91/54; O2SAT 99
[2023-03-21] VITALS (27 sets, daily range): BP systolic 88–118; BP diastolic 51–65; TEMP 97.1–98.2; O2SAT 90–100
[2023-03-21] MEDS: MIDAZOLAM INJ 2MG/2ML VIAL IV PRN ×3 (04:04→08:24)
[2023-03-21 05:25] LABS: BASO % 0.2 % (0.0-1.0); HEMATOCRIT 31.4 % (42.0-52.0); LYMPH # 0.3 10^3/uL (1.5-5.0); LYMPH % 2.2 % (24.0-44.0); MEAN CORPUSCULAR HEMOGLOBIN 28.8 pg (27.0-33.0); MEAN CORPUSCULAR HGB CONC 32.5 g/dl (32.0-36.5); MEAN CORPUSCULAR VOLUME 88.7 fl (80.0-96.0); MONO # 0.5 10^3/uL (0.0-0.8); NEUTROPHILS # 14.7 10^3/uL (1.5-8.5); NEUTROPHILS % 93.8 % (36.0-66.0); RED BLOOD COUNT 3.54 10^6/uL (4.30-6.10); WHITE BLOOD COUNT 15.7 10^3/uL (4.0-10.0)
[2023-03-21 05:29] LABS: HEMOGLOBIN 10.2 g/dl (13.5-17.5); PLATELET COUNT, AUTOMATED 383 10^3/uL (150-450)
[2023-03-21 05:32] LABS: ALBUMIN 2.7 G/DL (3.2-5.2); ALKALINE PHOSPHATASE 87 U/L (46-116); ALT/SGPT 11 U/L (7.0-40); AST/SGOT 15 U/L (<34); BILIRUBIN,TOTAL 0.3 MG/DL (0.3-1.2); BLOOD UREA NITROGEN 12 MG/DL (9-23); CALCIUM LEVEL 9.2 MG/DL (8.3-10.6); CARBON DIOXIDE LEVEL 23 MMOL/L (20-31); CHLORIDE LEVEL 110 MMOL/L (98-107); CREATININE FOR GFR 0.69 MG/DL (0.70-1.30); GLOMERULAR FILTRATION RATE > 60.0 (>49); GLUCOSE, FASTING 181 MG/DL (74-106); MAGNESIUM LEVEL 1.8 MG/DL (1.8-2.4); PHOSPHORUS LEVEL 3.1 MG/DL (2.4-5.1); POTASSIUM SERUM 4.2 MMOL/L (3.5-5.1); SODIUM LEVEL 141 MMOL/L (136-145); TOTAL PROTEIN 5.9 G/DL (5.7-8.2)
[2023-03-21 06:01] LABS: ABG BASE EXCESS -2.1 (-2.0-2.0); ABG HCO3 22.3 MMOL/L (22.0-26.0); ABG O2 SATURATION 96.3 % (95.0-99.0); ABG PARTIAL PRESSURE CO2 36.5 mmHg (35.0-45.0); ABG PARTIAL PRESSURE O2 79.1 mmHg (75.0-100.0); ABG STANDARD HCO3 22.7 MMOL/L. (22.0-26.0); ABG TOTAL CO2 23.4 MMOL/L (23.0-31.0); ABG pH (ARTERIAL) 7.404 UNITS (7.350-7.450)
[2023-03-21] MEDS: IPRATROPIUM 0.5MG/ALBUTEROL 2.5MG INH SOL UD 3ML (DUONEB) NEB SCH ×3 (07:16→19:09)
[2023-03-21] MEDS: PANTOPRAZOLE 40MG VIAL IV SCH (08:24)
[2023-03-21] MEDS: ENOXAPARIN 40MG/0.4ML SYRINGE (J1650 PER 10MG) SC SCH (08:24)
[2023-03-21] MEDS: fentaNYL CITRATE/NaCl 1,000 MCG in IV 1 EA IV SCH (08:54)
[2023-03-21] MEDS: MOM 30ML SUSPENSION UDC PO SCH (09:00)
[2023-03-21] MEDS: cefTRIAXone SOD 1 GM in D5W MINI-BAG PLUS 50 ML IV SCH (15:58)
[2023-03-21] MEDS ORDERED: AZITHROMYCIN INJ 500 MG, VIAL MATE ADAPTER 1 EACH in NS 250 ML IV SCH (16:00)
[2023-03-21] MEDS ORDERED: KETOROLAC 30 MG/ML 1ML VIAL IV ONE (17:00)
[2023-03-21] MEDS ORDERED: PERCOCET 5MG/325MG TAB PO PRN (17:05)
[2023-03-21] MEDS: PERCOCET 5MG/325MG TAB PO PRN (17:43)
[2023-03-21] MEDS: BUDESONIDE 0.25 MG/2 ML INHALATION SUSPENSION INH SCH (19:09)
[2023-03-21] MEDS: dilTIAZem 30 MG TAB PO SCH (20:34)
[2023-03-21] MEDS: SENOKOT S TAB PO SCH (20:34)
[2023-03-21] MEDS: KETOROLAC 30 MG/ML 1ML VIAL IV SCH (22:46)
[2023-03-22] VITALS (11 sets, daily range): BP systolic 117–148; BP diastolic 59–77; TEMP 98.2–99.1; O2SAT 91–94
[2023-03-22] MEDS: PERCOCET 5MG/325MG TAB PO PRN ×3 (04:03→20:24)
[2023-03-22] MEDS: KETOROLAC 30 MG/ML 1ML VIAL IV SCH ×4 (05:07→23:43)
[2023-03-22 05:35] LABS: BASO % 0.1 % (0.0-1.0); HEMATOCRIT 30.6 % (42.0-52.0); HEMOGLOBIN 10.1 g/dl (13.5-17.5); LYMPH # 0.5 10^3/uL (1.5-5.0); LYMPH % 2.1 % (24.0-44.0); MEAN CORPUSCULAR HEMOGLOBIN 29.4 pg (27.0-33.0); MEAN CORPUSCULAR VOLUME 89.2 fl (80.0-96.0); MONO # 1.4 10^3/uL (0.0-0.8); MONO % 6.3 % (2.0-8.0); NEUTROPHILS # 20.6 10^3/uL (1.5-8.5); NEUTROPHILS % 90.5 % (36.0-66.0); PLATELET COUNT, AUTOMATED 444 10^3/uL (150-450); RED BLOOD COUNT 3.43 10^6/uL (4.30-6.10); WHITE BLOOD COUNT 22.8 10^3/uL (4.0-10.0)
[2023-03-22 05:47] LABS: ALBUMIN 2.9 G/DL (3.2-5.2); ALKALINE PHOSPHATASE 83 U/L (46-116); ALT/SGPT 13 U/L (7.0-40); AST/SGOT 13 U/L (<34); BILIRUBIN,TOTAL 0.2 MG/DL (0.3-1.2); BLOOD UREA NITROGEN 15 MG/DL (9-23); CALCIUM LEVEL 9.5 MG/DL (8.3-10.6); CARBON DIOXIDE LEVEL 23 MMOL/L (20-31); CHLORIDE LEVEL 109 MMOL/L (98-107); CREATININE FOR GFR 0.78 MG/DL (0.70-1.30); GLOMERULAR FILTRATION RATE > 60.0 (>49); GLUCOSE, FASTING 111 MG/DL (74-106); MAGNESIUM LEVEL 1.8 MG/DL (1.8-2.4); PHOSPHORUS LEVEL 3.3 MG/DL (2.4-5.1); POTASSIUM SERUM 4.1 MMOL/L (3.5-5.1); SODIUM LEVEL 143 MMOL/L (136-145)
[2023-03-22] MEDS: BUDESONIDE 0.25 MG/2 ML INHALATION SUSPENSION INH SCH ×2 (07:31→19:13)
[2023-03-22] MEDS: IPRATROPIUM 0.5MG/ALBUTEROL 2.5MG INH SOL UD 3ML (DUONEB) NEB SCH ×4 (07:31→19:13)
[2023-03-22] MEDS: PANTOPRAZOLE 40MG VIAL IV SCH (08:17)
[2023-03-22] MEDS: ENOXAPARIN 40MG/0.4ML SYRINGE (J1650 PER 10MG) SC SCH (08:18)
[2023-03-22] MEDS: dilTIAZem 30 MG TAB PO SCH ×2 (08:18→20:23)
[2023-03-22] MEDS: MOM 30ML SUSPENSION UDC PO SCH (08:19)
[2023-03-22] MEDS: SENOKOT S TAB PO SCH ×2 (08:19→20:23)
[2023-03-22] MEDS: cefTRIAXone SOD 1 GM in D5W MINI-BAG PLUS 50 ML IV SCH (14:36)
[2023-03-22] MEDS: AZITHROMYCIN 250MG TABLET PO SCH (15:12)
[2023-03-23] VITALS (7 sets, daily range): BP systolic 115–134; BP diastolic 67–78; TEMP 98–100; O2SAT 91–99
[2023-03-23] MEDS: PERCOCET 5MG/325MG TAB PO PRN ×4 (03:24→23:16)
[2023-03-23] MEDS: KETOROLAC 30 MG/ML 1ML VIAL IV SCH ×4 (05:19→23:16)
[2023-03-23] MEDS: IPRATROPIUM 0.5MG/ALBUTEROL 2.5MG INH SOL UD 3ML (DUONEB) NEB SCH ×4 (07:29→19:59)
[2023-03-23] MEDS: BUDESONIDE 0.25 MG/2 ML INHALATION SUSPENSION INH SCH ×2 (07:30→19:59)
[2023-03-23 09:10] LABS: BASO % 0.2 % (0.0-1.0); EOS # 0.2 10^3/uL (0.0-0.5); EOS % 0.8 % (0.0-3.0); HEMOGLOBIN 11.7 g/dl (13.5-17.5); LYMPH # 0.3 10^3/uL (1.5-5.0); LYMPH % 1.4 % (24.0-44.0); MEAN CORPUSCULAR HGB CONC 32.5 g/dl (32.0-36.5); MEAN CORPUSCULAR VOLUME 89.3 fl (80.0-96.0); MONO # 1.4 10^3/uL (0.0-0.8); MONO % 6.4 % (2.0-8.0); NEUTROPHILS # 19.5 10^3/uL (1.5-8.5); NEUTROPHILS % 90.6 % (36.0-66.0); PLATELET COUNT, AUTOMATED 444 10^3/uL (150-450); RED BLOOD COUNT 4.03 10^6/uL (4.30-6.10); WHITE BLOOD COUNT 21.5 10^3/uL (4.0-10.0)
[2023-03-23] MEDS: PANTOPRAZOLE 40MG VIAL IV SCH (09:26)
[2023-03-23] MEDS: MOM 30ML SUSPENSION UDC PO SCH (09:27)
[2023-03-23] MEDS: dilTIAZem 30 MG TAB PO SCH ×2 (09:27→20:31)
[2023-03-23] MEDS: SENOKOT S TAB PO SCH ×2 (09:27→20:31)
[2023-03-23] MEDS: ENOXAPARIN 40MG/0.4ML SYRINGE (J1650 PER 10MG) SC SCH (09:28)
[2023-03-23 09:45] LABS: BLOOD UREA NITROGEN 16 MG/DL (9-23); CALCIUM LEVEL 9.1 MG/DL (8.3-10.6); CARBON DIOXIDE LEVEL 26 MMOL/L (20-31); CHLORIDE LEVEL 104 MMOL/L (98-107); CREATININE FOR GFR 0.82 MG/DL (0.70-1.30); GLOMERULAR FILTRATION RATE > 60.0 (>49); GLUCOSE, FASTING 152 MG/DL (74-106); POTASSIUM SERUM 4.1 MMOL/L (3.5-5.1); SODIUM LEVEL 139 MMOL/L (136-145)
[2023-03-23] MEDS: cefTRIAXone SOD 1 GM in D5W MINI-BAG PLUS 50 ML IV SCH (15:54)
[2023-03-23] MEDS: AZITHROMYCIN 250MG TABLET PO SCH (15:54)
[2023-03-23] MEDS ORDERED: RAMELTEON 8 MG TAB (ROZEREM) PO ONE (20:40)
[2023-03-24] VITALS (16 sets, daily range): BP systolic 95–124; BP diastolic 52–70; TEMP 97.5–98.8; O2SAT 89–99
[2023-03-24] MEDS ORDERED: NICOTINE POLACRILEX 2 MG GUM PO ONE
[2023-03-24] MEDS: KETOROLAC 30 MG/ML 1ML VIAL IV SCH ×3 (05:07→16:13)
[2023-03-24] MEDS: PERCOCET 5MG/325MG TAB PO PRN ×3 (05:16→21:37)
[2023-03-24 06:28] LABS: BASO # 0.1 10^3/uL (0.0-0.2); BASO % 0.3 % (0.0-1.0); EOS # 0.6 10^3/uL (0.0-0.5); EOS % 2.9 % (0.0-3.0); HEMATOCRIT 32.3 % (42.0-52.0); HEMOGLOBIN 10.5 g/dl (13.5-17.5); LYMPH # 0.3 10^3/uL (1.5-5.0); LYMPH % 1.3 % (24.0-44.0); MEAN CORPUSCULAR HEMOGLOBIN 28.5 pg (27.0-33.0); MEAN CORPUSCULAR HGB CONC 32.5 g/dl (32.0-36.5); MEAN CORPUSCULAR VOLUME 87.8 fl (80.0-96.0); MONO # 1.3 10^3/uL (0.0-0.8); NEUTROPHILS # 18.7 10^3/uL (1.5-8.5); NEUTROPHILS % 88.8 % (36.0-66.0); PLATELET COUNT, AUTOMATED 377 10^3/uL (150-450); RED BLOOD COUNT 3.68 10^6/uL (4.30-6.10); WHITE BLOOD COUNT 21.1 10^3/uL (4.0-10.0)
[2023-03-24 06:42] LABS: BLOOD UREA NITROGEN 16 MG/DL (9-23); CALCIUM LEVEL 8.8 MG/DL (8.3-10.6); CARBON DIOXIDE LEVEL 26 MMOL/L (20-31); CHLORIDE LEVEL 104 MMOL/L (98-107); CREATININE FOR GFR 0.88 MG/DL (0.70-1.30); GLOMERULAR FILTRATION RATE > 60.0 (>49); GLUCOSE, FASTING 111 MG/DL (74-106); SODIUM LEVEL 137 MMOL/L (136-145)
[2023-03-24] MEDS: IPRATROPIUM 0.5MG/ALBUTEROL 2.5MG INH SOL UD 3ML (DUONEB) NEB SCH ×4 (07:25→20:11)
[2023-03-24] MEDS: BUDESONIDE 0.25 MG/2 ML INHALATION SUSPENSION INH SCH ×2 (07:25→20:12)
[2023-03-24] MEDS: MOM 30ML SUSPENSION UDC PO SCH (08:50)
[2023-03-24] MEDS: PANTOPRAZOLE 40MG VIAL IV SCH (08:50)
[2023-03-24] MEDS: SENOKOT S TAB PO SCH ×2 (08:50→21:39)
[2023-03-24] MEDS: ENOXAPARIN 40MG/0.4ML SYRINGE (J1650 PER 10MG) SC SCH (08:51)
[2023-03-24] MEDS: dilTIAZem 30 MG TAB PO SCH ×2 (09:00→21:39)
[2023-03-24] MEDS ORDERED: flumazeniL 0.5MG/5ML VIAL As Ordered ONE (11:21)
[2023-03-24] MEDS ORDERED: LIDOCAINE 1% MDV 20ML VIAL As Ordered ONE ×2 (11:22→11:37)
[2023-03-24] MEDS ORDERED: MIDAZOLAM INJ 2MG/2ML VIAL As Ordered ONE (11:22)
[2023-03-24] MEDS ORDERED: LIDOCAINE 1% MDV 20ML VIAL SC ONE (12:35)
[2023-03-24] MEDS ORDERED: MIDAZOLAM INJ 2MG/2ML VIAL IV ONE (12:35)
[2023-03-24 12:50] LABS: PH BODY FLUID 7.642 UNITS (NOT ESTABLISHED); SOURCE, BODY FLUID pH PLEURAL
[2023-03-24 12:57] LABS: APPEARANCE, BODY FLUID CLOUDY (CLEAR); PLEURAL FL COLOR YELLOW (COLORLESS); SOURCE, BODY FLUID PLEURAL
[2023-03-24 12:57] LABS: LDH LACTATE DEHYDROGENASE 199 U/L (120-246)
[2023-03-24 13:15] LABS: SOURCE, BODY FLUID ALBUMIN PLEURAL
[2023-03-24 13:20] LABS: SOURCE, BODY FLUID GLUCOSE PLEURAL; SOURCE, BODY FLUID TRIG PLEURAL; TRIGLYCERIDE, BODY FLUID 21 MG/DL (NOT ESTABLISHED)
[2023-03-24 13:21] LABS: AMYLASE, BODY FLUID 21 U/L (NOT ESTABLISHED); LDH, BODY FLUID 234 U/L (NOT ESTABLISHED); SOURCE, BODY FLUID AMYLASE PLEURAL; SOURCE, BODY FLUID LDH PLEURAL
[2023-03-24 13:22] LABS: CHOLESTEROL, BODY FLUID 67 MG/DL (NOT ESTABLISHED); SOURCE, BODY FLUID CHOL PLEURAL; SOURCE, BODY FLUID TOT PROTEIN PLEURAL; TOTAL PROTEIN, BODY FLUID 3.9 G/DL (NOT ESTABLISHED)
[2023-03-24] MEDS: cefTRIAXone SOD 1 GM in D5W MINI-BAG PLUS 50 ML IV SCH (15:34)
[2023-03-24] MEDS ORDERED: MORPHINE 4 MG/ML 1ML VIAL IV ONE (17:00)
[2023-03-24] MEDS ORDERED: LIDOCAINE 5% (LIDODERM) PATCH TD ONE (21:00)
[2023-03-24] MEDS: NICOTINE POLACRILEX 2 MG GUM PO PRN (21:37)
[2023-03-24] MEDS ORDERED: MORPHINE 2 MG/ML 1ML VIAL IV ONE (23:00)
[2023-03-25] MEDS: KETOROLAC 30 MG/ML 1ML VIAL IV SCH ×5 (00:18→23:23)
[2023-03-25 04:09] VITALS: BP 96/54; TEMP 97.9; O2SAT 90
[2023-03-25] MEDS: PERCOCET 5MG/325MG TAB PO PRN (04:26)
[2023-03-25 07:09] LABS: BASO # 0.1 10^3/uL (0.0-0.2); BASO % 0.3 % (0.0-1.0); EOS % 5.7 % (0.0-3.0); HEMATOCRIT 30.9 % (42.0-52.0); HEMOGLOBIN 10.1 g/dl (13.5-17.5); LYMPH # 0.2 10^3/uL (1.5-5.0); LYMPH % 1.3 % (24.0-44.0); MEAN CORPUSCULAR HEMOGLOBIN 29.4 pg (27.0-33.0); MEAN CORPUSCULAR HGB CONC 32.7 g/dl (32.0-36.5); MEAN CORPUSCULAR VOLUME 90.1 fl (80.0-96.0); MONO # 1.4 10^3/uL (0.0-0.8); MONO % 7.7 % (2.0-8.0); NEUTROPHILS # 15.4 10^3/uL (1.5-8.5); NEUTROPHILS % 84.5 % (36.0-66.0); PLATELET COUNT, AUTOMATED 379 10^3/uL (150-450); RED BLOOD COUNT 3.43 10^6/uL (4.30-6.10); WHITE BLOOD COUNT 18.2 10^3/uL (4.0-10.0)
[2023-03-25 07:31] LABS: BLOOD UREA NITROGEN 22 MG/DL (9-23); CALCIUM LEVEL 9.2 MG/DL (8.3-10.6); CARBON DIOXIDE LEVEL 26 MMOL/L (20-31); CHLORIDE LEVEL 102 MMOL/L (98-107); CREATININE FOR GFR 0.99 MG/DL (0.70-1.30); GLOMERULAR FILTRATION RATE > 60.0 (>49); GLUCOSE, FASTING 148 MG/DL (74-106); POTASSIUM SERUM 4.5 MMOL/L (3.5-5.1); SODIUM LEVEL 135 MMOL/L (136-145)
[2023-03-25 08:14] VITALS: BP 98/59; TEMP 98.1; O2SAT 93
[2023-03-25] MEDS: SENOKOT S TAB PO SCH ×2 (08:51→20:32)
[2023-03-25] MEDS: ENOXAPARIN 40MG/0.4ML SYRINGE (J1650 PER 10MG) SC SCH (08:51)
[2023-03-25] MEDS: PANTOPRAZOLE 40MG TAB (PROTONIX) PO SCH (08:52)
[2023-03-25] MEDS: MOM 30ML SUSPENSION UDC PO SCH (08:52)
[2023-03-25] MEDS: dilTIAZem 30 MG TAB PO SCH ×2 (08:54→20:31)
[2023-03-25] MEDS: IPRATROPIUM 0.5MG/ALBUTEROL 2.5MG INH SOL UD 3ML (DUONEB) NEB SCH ×4 (08:59→20:00)
[2023-03-25] MEDS: BUDESONIDE 0.25 MG/2 ML INHALATION SUSPENSION INH SCH ×2 (08:59→20:05)
[2023-03-25 11:54] VITALS: BP 106/67; O2SAT 90
[2023-03-25 15:50] VITALS: BP 100/64; TEMP 98.3; O2SAT 97
[2023-03-25] MEDS: oxyCODONE 5MG TAB PO PRN ×2 (16:56→23:23)
[2023-03-25 19:21] VITALS: BP 106/67; TEMP 98.9; O2SAT 96
[2023-03-25] MEDS: NICOTINE POLACRILEX 2 MG GUM PO PRN (20:32)
[2023-03-25] MEDS: ACETAMINOPHEN TAB 650MG DOSE (2X325MG) PO PRN (20:33)
[2023-03-25 23:41] VITALS: BP 98/61; TEMP 97.1; O2SAT 94
[2023-03-26] VITALS (23 sets, daily range): BP systolic 97–131; BP diastolic 57–71; TEMP 97.5–98.6; O2SAT 89–97
[2023-03-26] MEDS: KETOROLAC 30 MG/ML 1ML VIAL IV SCH ×3 (05:03→18:01)
[2023-03-26 05:26] LABS: BASO # 0.1 10^3/uL (0.0-0.2); BASO % 0.4 % (0.0-1.0); EOS # 0.8 10^3/uL (0.0-0.5); EOS % 6.1 % (0.0-3.0); HEMOGLOBIN 9.6 g/dl (13.5-17.5); LYMPH # 0.2 10^3/uL (1.5-5.0); LYMPH % 1.7 % (24.0-44.0); MEAN CORPUSCULAR HEMOGLOBIN 29.5 pg (27.0-33.0); MEAN CORPUSCULAR HGB CONC 33.1 g/dl (32.0-36.5); MEAN CORPUSCULAR VOLUME 89.2 fl (80.0-96.0); MONO # 1.4 10^3/uL (0.0-0.8); MONO % 10.1 % (2.0-8.0); NEUTROPHILS # 10.9 10^3/uL (1.5-8.5); NEUTROPHILS % 80.5 % (36.0-66.0); PLATELET COUNT, AUTOMATED 329 10^3/uL (150-450); RED BLOOD COUNT 3.25 10^6/uL (4.30-6.10); WHITE BLOOD COUNT 13.5 10^3/uL (4.0-10.0)
[2023-03-26] MEDS: oxyCODONE 5MG TAB PO PRN ×3 (05:40→18:15)
[2023-03-26 05:49] LABS: BLOOD UREA NITROGEN 21 MG/DL (9-23); CARBON DIOXIDE LEVEL 25 MMOL/L (20-31); CHLORIDE LEVEL 106 MMOL/L (98-107); CREATININE FOR GFR 0.94 MG/DL (0.70-1.30); GLOMERULAR FILTRATION RATE > 60.0 (>49); GLUCOSE, FASTING 96 MG/DL (74-106); POTASSIUM SERUM 4.7 MMOL/L (3.5-5.1); SODIUM LEVEL 139 MMOL/L (136-145)
[2023-03-26] MEDS: IPRATROPIUM 0.5MG/ALBUTEROL 2.5MG INH SOL UD 3ML (DUONEB) NEB SCH ×4 (08:00→19:35)
[2023-03-26] MEDS: BUDESONIDE 0.25 MG/2 ML INHALATION SUSPENSION INH SCH ×2 (08:00→19:34)
[2023-03-26] MEDS: PANTOPRAZOLE 40MG TAB (PROTONIX) PO SCH (08:33)
[2023-03-26] MEDS: SENOKOT S TAB PO SCH ×2 (08:34→20:36)
[2023-03-26] MEDS: MOM 30ML SUSPENSION UDC PO SCH (08:34)
[2023-03-26] MEDS: ACETAMINOPHEN TAB 650MG DOSE (2X325MG) PO PRN ×2 (08:34→20:36)
[2023-03-26] MEDS: ENOXAPARIN 40MG/0.4ML SYRINGE (J1650 PER 10MG) SC SCH (08:34)
[2023-03-26] MEDS: dilTIAZem 30 MG TAB PO SCH ×2 (08:34→20:35)
[2023-03-26] MEDS ORDERED: FUROSEMIDE 40MG/4ML VIAL IV ONE (08:40)
[2023-03-26] MEDS: NICOTINE POLACRILEX 2 MG GUM PO PRN (20:35)
[2023-03-27] VITALS (30 sets, daily range): BP systolic 100–125; BP diastolic 58–79; TEMP 96.8–98.1; O2SAT 82–98
[2023-03-27] MEDS: KETOROLAC 30 MG/ML 1ML VIAL IV SCH ×4 (00:11→18:27)
[2023-03-27] MEDS: oxyCODONE 5MG TAB PO PRN ×4 (00:11→18:27)
[2023-03-27] MEDS: ACETAMINOPHEN TAB 650MG DOSE (2X325MG) PO PRN ×2 (03:04→10:03)
[2023-03-27 06:20] LABS: BASO # 0.1 10^3/uL (0.0-0.2); BASO % 0.5 % (0.0-1.0); EOS # 0.9 10^3/uL (0.0-0.5); EOS % 8.4 % (0.0-3.0); HEMOGLOBIN 9.8 g/dl (13.5-17.5); LYMPH # 0.3 10^3/uL (1.5-5.0); LYMPH % 2.3 % (24.0-44.0); MEAN CORPUSCULAR HEMOGLOBIN 29.3 pg (27.0-33.0); MEAN CORPUSCULAR HGB CONC 32.7 g/dl (32.0-36.5); MEAN CORPUSCULAR VOLUME 89.8 fl (80.0-96.0); MONO # 1.4 10^3/uL (0.0-0.8); MONO % 12.4 % (2.0-8.0); NEUTROPHILS # 8.2 10^3/uL (1.5-8.5); NEUTROPHILS % 74.8 % (36.0-66.0); PLATELET COUNT, AUTOMATED 340 10^3/uL (150-450); RED BLOOD COUNT 3.34 10^6/uL (4.30-6.10); WHITE BLOOD COUNT 10.9 10^3/uL (4.0-10.0)
[2023-03-27 06:43] LABS: BLOOD UREA NITROGEN 24 MG/DL (9-23); CALCIUM LEVEL 8.5 MG/DL (8.3-10.6); CARBON DIOXIDE LEVEL 27 MMOL/L (20-31); CHLORIDE LEVEL 101 MMOL/L (98-107); CREATININE FOR GFR 1.05 MG/DL (0.70-1.30); GLOMERULAR FILTRATION RATE > 60.0 (>49); GLUCOSE, FASTING 137 MG/DL (74-106); POTASSIUM SERUM 4.3 MMOL/L (3.5-5.1); SODIUM LEVEL 136 MMOL/L (136-145)
[2023-03-27] MEDS: IPRATROPIUM 0.5MG/ALBUTEROL 2.5MG INH SOL UD 3ML (DUONEB) NEB SCH (07:22)
[2023-03-27] MEDS: BUDESONIDE 0.25 MG/2 ML INHALATION SUSPENSION INH SCH (07:22)
[2023-03-27] MEDS: MOM 30ML SUSPENSION UDC PO SCH (09:00)
[2023-03-27] MEDS: ENOXAPARIN 40MG/0.4ML SYRINGE (J1650 PER 10MG) SC SCH (09:00)
[2023-03-27] MEDS: SENOKOT S TAB PO SCH ×2 (09:00→20:50)
[2023-03-27] MEDS: dilTIAZem 30 MG TAB PO SCH ×2 (10:02→20:47)
[2023-03-27] MEDS: PANTOPRAZOLE 40MG TAB (PROTONIX) PO SCH (10:02)
[2023-03-27] MEDS ORDERED: IPRATROPIUM 0.5MG/ALBUTEROL 2.5MG INH SOL UD 3ML (DUONEB) NEB PRN (10:55)
[2023-03-27] MEDS: SYMBICORT 160/4.5MCG INHALER 6GM INH SCH (19:36)
[2023-03-28] VITALS (27 sets, daily range): BP systolic 100–125; BP diastolic 57–71; TEMP 97.4–98.7; O2SAT 82–97
[2023-03-28] MEDS: KETOROLAC 30 MG/ML 1ML VIAL IV SCH ×4 (00:28→18:23)
[2023-03-28] MEDS: oxyCODONE 5MG TAB PO PRN ×4 (00:29→18:50)
[2023-03-28 07:33] LABS: BASO # 0.1 10^3/uL (0.0-0.2); BASO % 0.5 % (0.0-1.0); EOS # 0.9 10^3/uL (0.0-0.5); EOS % 6.9 % (0.0-3.0); HEMATOCRIT 31.9 % (42.0-52.0); HEMOGLOBIN 10.3 g/dl (13.5-17.5); LYMPH # 0.4 10^3/uL (1.5-5.0); LYMPH % 2.9 % (24.0-44.0); MEAN CORPUSCULAR HEMOGLOBIN 28.9 pg (27.0-33.0); MEAN CORPUSCULAR HGB CONC 32.3 g/dl (32.0-36.5); MEAN CORPUSCULAR VOLUME 89.6 fl (80.0-96.0); MONO # 1.3 10^3/uL (0.0-0.8); MONO % 10.4 % (2.0-8.0); NEUTROPHILS # 9.9 10^3/uL (1.5-8.5); NEUTROPHILS % 77.1 % (36.0-66.0); PLATELET COUNT, AUTOMATED 328 10^3/uL (150-450); RED BLOOD COUNT 3.56 10^6/uL (4.30-6.10); WHITE BLOOD COUNT 12.8 10^3/uL (4.0-10.0)
[2023-03-28] MEDS: MOM 30ML SUSPENSION UDC PO SCH (07:52)
[2023-03-28] MEDS: SENOKOT S TAB PO SCH ×2 (07:52→21:00)
[2023-03-28] MEDS: ENOXAPARIN 40MG/0.4ML SYRINGE (J1650 PER 10MG) SC SCH (07:52)
[2023-03-28] MEDS: SYMBICORT 160/4.5MCG INHALER 6GM INH SCH ×2 (08:00→20:00)
[2023-03-28 08:24] LABS: BLOOD UREA NITROGEN 19 MG/DL (9-23); CALCIUM LEVEL 9.5 MG/DL (8.3-10.6); CARBON DIOXIDE LEVEL 23 MMOL/L (20-31); CHLORIDE LEVEL 104 MMOL/L (98-107); CREATININE FOR GFR 0.96 MG/DL (0.70-1.30); GLOMERULAR FILTRATION RATE > 60.0 (>49); GLUCOSE, FASTING 87 MG/DL (74-106); POTASSIUM SERUM 4.8 MMOL/L (3.5-5.1); SODIUM LEVEL 138 MMOL/L (136-145)
[2023-03-28] MEDS: ACETAMINOPHEN TAB 650MG DOSE (2X325MG) PO PRN ×2 (09:41→21:15)
[2023-03-28] MEDS: PANTOPRAZOLE 40MG TAB (PROTONIX) PO SCH (09:41)
[2023-03-28] MEDS: dilTIAZem 30 MG TAB PO SCH ×2 (09:41→21:13)
[2023-03-29] VITALS (24 sets, daily range): BP systolic 96–116; BP diastolic 58–66; TEMP 97.5–98; O2SAT 89–97
[2023-03-29] MEDS: KETOROLAC 30 MG/ML 1ML VIAL IV SCH ×4 (00:36→18:10)
[2023-03-29] MEDS: oxyCODONE 5MG TAB PO PRN ×4 (00:36→18:10)
[2023-03-29 05:56] LABS: BASO # 0.1 10^3/uL (0.0-0.2); BASO % 0.8 % (0.0-1.0); EOS # 0.8 10^3/uL (0.0-0.5); EOS % 5.9 % (0.0-3.0); HEMATOCRIT 30.7 % (42.0-52.0); LYMPH # 0.4 10^3/uL (1.5-5.0); MEAN CORPUSCULAR HEMOGLOBIN 29.4 pg (27.0-33.0); MEAN CORPUSCULAR HGB CONC 32.6 g/dl (32.0-36.5); MEAN CORPUSCULAR VOLUME 90.3 fl (80.0-96.0); MONO # 1.3 10^3/uL (0.0-0.8); MONO % 9.8 % (2.0-8.0); NEUTROPHILS # 10.3 10^3/uL (1.5-8.5); NEUTROPHILS % 77.9 % (36.0-66.0); PLATELET COUNT, AUTOMATED 326 10^3/uL (150-450); WHITE BLOOD COUNT 13.2 10^3/uL (4.0-10.0)
[2023-03-29 06:24] LABS: BLOOD UREA NITROGEN 20 MG/DL (9-23); CALCIUM LEVEL 9.2 MG/DL (8.3-10.6); CARBON DIOXIDE LEVEL 25 MMOL/L (20-31); CHLORIDE LEVEL 107 MMOL/L (98-107); CREATININE FOR GFR 0.97 MG/DL (0.70-1.30); GLOMERULAR FILTRATION RATE > 60.0 (>49); GLUCOSE, FASTING 90 MG/DL (74-106); POTASSIUM SERUM 4.7 MMOL/L (3.5-5.1); SODIUM LEVEL 141 MMOL/L (136-145)
[2023-03-29] MEDS: SYMBICORT 160/4.5MCG INHALER 6GM INH SCH ×2 (07:45→20:00)
[2023-03-29] MEDS: ENOXAPARIN 40MG/0.4ML SYRINGE (J1650 PER 10MG) SC SCH ×2 (09:00→09:59)
[2023-03-29] MEDS: MOM 30ML SUSPENSION UDC PO SCH (09:00)
[2023-03-29] MEDS: PANTOPRAZOLE 40MG TAB (PROTONIX) PO SCH (10:00)
[2023-03-29] MEDS: SENOKOT S TAB PO SCH ×2 (10:00→21:00)
[2023-03-29] MEDS: dilTIAZem 30 MG TAB PO SCH ×2 (10:00→21:42)
[2023-03-29] MEDS: NICOTINE POLACRILEX 2 MG GUM PO PRN (10:41)
[2023-03-29] MEDS: ACETAMINOPHEN TAB 650MG DOSE (2X325MG) PO PRN (21:42)
[2023-03-30] VITALS (26 sets, daily range): BP systolic 97–127; BP diastolic 55–71; TEMP 97.2–98.2; O2SAT 88–97
[2023-03-30] MEDS: KETOROLAC 30 MG/ML 1ML VIAL IV SCH ×3 (00:19→12:20)
[2023-03-30] MEDS: oxyCODONE 5MG TAB PO PRN ×4 (00:19→17:48)
[2023-03-30 05:26] LABS: BASO # 0.1 10^3/uL (0.0-0.2); BASO % 0.9 % (0.0-1.0); EOS # 0.9 10^3/uL (0.0-0.5); EOS % 6.5 % (0.0-3.0); HEMATOCRIT 30.9 % (42.0-52.0); HEMOGLOBIN 9.9 g/dl (13.5-17.5); LYMPH # 0.5 10^3/uL (1.5-5.0); LYMPH % 3.4 % (24.0-44.0); MEAN CORPUSCULAR HEMOGLOBIN 28.9 pg (27.0-33.0); MEAN CORPUSCULAR VOLUME 90.1 fl (80.0-96.0); MONO # 1.4 10^3/uL (0.0-0.8); MONO % 10.4 % (2.0-8.0); NEUTROPHILS # 10.1 10^3/uL (1.5-8.5); NEUTROPHILS % 75.1 % (36.0-66.0); PLATELET COUNT, AUTOMATED 324 10^3/uL (150-450); RED BLOOD COUNT 3.43 10^6/uL (4.30-6.10); WHITE BLOOD COUNT 13.4 10^3/uL (4.0-10.0)
[2023-03-30 05:55] LABS: BLOOD UREA NITROGEN 23 MG/DL (9-23); CARBON DIOXIDE LEVEL 27 MMOL/L (20-31); CHLORIDE LEVEL 105 MMOL/L (98-107); CREATININE FOR GFR 1.03 MG/DL (0.70-1.30); GLOMERULAR FILTRATION RATE > 60.0 (>49); GLUCOSE, FASTING 80 MG/DL (74-106); POTASSIUM SERUM 4.8 MMOL/L (3.5-5.1); SODIUM LEVEL 138 MMOL/L (136-145)
[2023-03-30] MEDS: SYMBICORT 160/4.5MCG INHALER 6GM INH SCH (08:00)
[2023-03-30] MEDS: SENOKOT S TAB PO SCH ×2 (09:00→20:02)
[2023-03-30] MEDS: ENOXAPARIN 40MG/0.4ML SYRINGE (J1650 PER 10MG) SC SCH (09:00)
[2023-03-30] MEDS: MOM 30ML SUSPENSION UDC PO SCH (09:00)
[2023-03-30] MEDS: NICOTINE POLACRILEX 2 MG GUM PO PRN (09:46)
[2023-03-30] MEDS: ACETAMINOPHEN TAB 650MG DOSE (2X325MG) PO PRN ×2 (09:47→14:45)
[2023-03-30] MEDS: PANTOPRAZOLE 40MG TAB (PROTONIX) PO SCH (09:48)
[2023-03-30] MEDS: dilTIAZem 30 MG TAB PO SCH ×2 (09:48→20:02)
[2023-03-30] MEDS: TIOTROPIUM INHALER/CAPSULE (SPIRIVA) INH SCH (15:05)
[2023-03-30] MEDS: FORMOTEROL FUMARATE 20 MCG/2 ML INHALATION SOLUTION (PERFOROMIST) INH SCH (19:30)
[2023-03-31] VITALS (28 sets, daily range): BP systolic 106–129; BP diastolic 59–88; TEMP 97.7–99.1; O2SAT 87–97
[2023-03-31] MEDS: NICOTINE POLACRILEX 2 MG GUM PO PRN ×3 (00:29→14:42)
[2023-03-31] MEDS: oxyCODONE 5MG TAB PO PRN ×4 (06:02→18:23)
[2023-03-31] MEDS: TIOTROPIUM INHALER/CAPSULE (SPIRIVA) INH SCH (07:43)
[2023-03-31] MEDS: FORMOTEROL FUMARATE 20 MCG/2 ML INHALATION SOLUTION (PERFOROMIST) INH SCH ×2 (07:43→19:51)
[2023-03-31 07:51] LABS: BASO # 0.1 10^3/uL (0.0-0.2); BASO % 0.9 % (0.0-1.0); EOS # 0.8 10^3/uL (0.0-0.5); EOS % 5.2 % (0.0-3.0); HEMATOCRIT 32.6 % (42.0-52.0); HEMOGLOBIN 10.6 g/dl (13.5-17.5); LYMPH # 0.6 10^3/uL (1.5-5.0); LYMPH % 3.8 % (24.0-44.0); MEAN CORPUSCULAR HEMOGLOBIN 29.4 pg (27.0-33.0); MEAN CORPUSCULAR HGB CONC 32.5 g/dl (32.0-36.5); MEAN CORPUSCULAR VOLUME 90.3 fl (80.0-96.0); MONO # 1.2 10^3/uL (0.0-0.8); MONO % 7.6 % (2.0-8.0); NEUTROPHILS # 12.1 10^3/uL (1.5-8.5); NEUTROPHILS % 80.2 % (36.0-66.0); PLATELET COUNT, AUTOMATED 403 10^3/uL (150-450); RED BLOOD COUNT 3.61 10^6/uL (4.30-6.10); WHITE BLOOD COUNT 15.1 10^3/uL (4.0-10.0)
[2023-03-31 08:10] LABS: BLOOD UREA NITROGEN 18 MG/DL (9-23); CALCIUM LEVEL 9.7 MG/DL (8.3-10.6); CARBON DIOXIDE LEVEL 27 MMOL/L (20-31); CHLORIDE LEVEL 102 MMOL/L (98-107); GLOMERULAR FILTRATION RATE > 60.0 (>49); GLUCOSE, FASTING 85 MG/DL (74-106); POTASSIUM SERUM 4.9 MMOL/L (3.5-5.1); SODIUM LEVEL 137 MMOL/L (136-145)
[2023-03-31] MEDS: PANTOPRAZOLE 40MG TAB (PROTONIX) PO SCH (08:57)
[2023-03-31] MEDS: dilTIAZem 30 MG TAB PO SCH ×2 (08:57→20:22)
[2023-03-31] MEDS: SENOKOT S TAB PO SCH ×2 (09:00→20:23)
[2023-03-31] MEDS: ENOXAPARIN 40MG/0.4ML SYRINGE (J1650 PER 10MG) SC SCH (09:00)
[2023-03-31] MEDS: MOM 30ML SUSPENSION UDC PO SCH (09:00)
[2023-03-31] MEDS: ACETAMINOPHEN TAB 650MG DOSE (2X325MG) PO PRN (14:42)
[2023-04-01] VITALS (24 sets, daily range): BP systolic 101–122; BP diastolic 59–70; TEMP 98–98.9; O2SAT 88–98
[2023-04-01] MEDS: oxyCODONE 5MG TAB PO PRN ×4 (00:30→18:20)
[2023-04-01] MEDS: NICOTINE POLACRILEX 2 MG GUM PO PRN ×2 (03:16→10:05)
[2023-04-01] MEDS: FORMOTEROL FUMARATE 20 MCG/2 ML INHALATION SOLUTION (PERFOROMIST) INH SCH ×2 (07:41→20:42)
[2023-04-01] MEDS: TIOTROPIUM INHALER/CAPSULE (SPIRIVA) INH SCH (07:42)
[2023-04-01] MEDS: ENOXAPARIN 40MG/0.4ML SYRINGE (J1650 PER 10MG) SC SCH (09:00)
[2023-04-01] MEDS: MOM 30ML SUSPENSION UDC PO SCH (09:00)
[2023-04-01] MEDS: PANTOPRAZOLE 40MG TAB (PROTONIX) PO SCH (09:36)
[2023-04-01] MEDS: dilTIAZem 30 MG TAB PO SCH ×2 (09:36→20:17)
[2023-04-01] MEDS: SENOKOT S TAB PO SCH ×2 (09:37→20:17)
[2023-04-01] MEDS: ACETAMINOPHEN TAB 650MG DOSE (2X325MG) PO PRN (09:45)
[2023-04-06 17:07] LABS: A1A FOR PHENOTYPE 359 mg/dL (101-187)
== END 2023-04-01 23:12 | disposition other institution (70) | DRG 208 ==
LOC: M ED 14:54 → EDBD 14:54 → M ED INP 18:17 → M ICU 20:02 → M PCU 03-24 00:55
PROVIDERS: ADMIT Internal Medicine Pulmonary Disease; ATTEND Internal Medicine Pulmonary Disease
PROC: 5A1935Z Respiratory Ventilation, Less than 24 Consecutive Hours (ICD-10-PCS; principal; 2023-03-20)
PROC: 0BH17EZ Insertion of Endotracheal Airway into Trachea, Via Natural or Artificial Opening (ICD-10-PCS; 2023-03-20)
PROC: 0W9930Z Drainage of Right Pleural Cavity with Drainage Device, Percutaneous Approach (ICD-10-PCS; 2023-03-21)
PROC: 0W9B30Z Drainage of Left Pleural Cavity with Drainage Device, Percutaneous Approach (ICD-10-PCS; 2023-03-24)
DX: J93.0 Spontaneous tension pneumothorax (principal); J96.01 Acute respiratory failure with hypoxia; J18.9 Pneumonia, unspecified organism; I48.92 Unspecified atrial flutter; E46 Unspecified protein-calorie malnutrition; J94.8 Other specified pleural conditions; B37.0 Candidal stomatitis; C34.12 Malignant neoplasm of upper lobe, left bronchus or lung; J44.1 Chronic obstructive pulmonary disease with (acute) exacerbation; J44.0 Chronic obstructive pulmonary disease with (acute) lower respiratory infection; M96.1 Postlaminectomy syndrome, not elsewhere classified; L13.9 Bullous disorder, unspecified; J93.82 Other air leak; I48.91 Unspecified atrial fibrillation; M54.50 Low back pain, unspecified; G89.29 Other chronic pain; Z87.891 Personal history of nicotine dependence; Z85.810 Personal history of malignant neoplasm of tongue; Z92.21 Personal history of antineoplastic chemotherapy; D69.6 Thrombocytopenia, unspecified; Z68.21 Body mass index [BMI] 21.0-21.9, adult; Z79.899 Other long term (current) drug therapy; Z20.822 Contact with and (suspected) exposure to COVID-19

== ENCOUNTER 2023-06-29 11:52 | Day surgery (SDC) | payer OTHER ==
[~2023-06-29] VITALS: Ht 170.2 cm; Wt 52.5 kg
[~2023-06-29 11:52] MED LIST changes: +CENT1TAB2 PO; +DILT30TA PO
[2023-06-29] MEDS: NS 1,000 ML IV ONE (12:15)
[2023-06-29] MEDS ORDERED: LIDOCAINE 2% 100MG/5ML SDV (FOR ANES.) As Ordered ONE (12:48)
[2023-06-29] MEDS ORDERED: fentaNYL 100 MCG/2 ML INJECTION As Ordered ONE (12:48)
[2023-06-29] MEDS ORDERED: propofoL 200 MG/20 ML VIAL As Ordered ONE (12:48)
[2023-06-29] MEDS ORDERED: PHENYLephrine 500MCG 5ML (100MCG/ML) SYRINGE As Ordered ONE (13:02)
[2023-06-29 13:21] VITALS: TEMP 97
[2023-06-29 13:44] VITALS: BP 110/69; O2SAT 97
== END 2023-06-29 13:51 | disposition home or self-care (01) ==
LOC: M OPP 11:52
PROVIDERS: ATTEND Surgery
DX: D12.6 Benign neoplasm of colon, unspecified (principal); D50.9 Iron deficiency anemia, unspecified; K31.89 Other diseases of stomach and duodenum; Z87.891 Personal history of nicotine dependence; Z85.118 Personal history of other malignant neoplasm of bronchus and lung; Z85.810 Personal history of malignant neoplasm of tongue; I48.91 Unspecified atrial fibrillation; G47.9 Sleep disorder, unspecified; J44.9 Chronic obstructive pulmonary disease, unspecified; Z79.51 Long term (current) use of inhaled steroids; Z79.82 Long term (current) use of aspirin; Z79.891 Long term (current) use of opiate analgesic; Z79.899 Other long term (current) drug therapy
CPT/HCPCS: 43239; 45380; 88305; J2371; J3010

== ENCOUNTER → 2023-07-22 | Outpatient (CLI) | payer OTHER ==
[~2023-07-22] MED LIST changes: +ISOVUE-370 76% 100ML VIAL ONE
== END ==
LOC: M PLAIMG 08:35
PROVIDERS: ATTEND Nurse Practitioner
DX: C34.90 Malignant neoplasm of unspecified part of unspecified bronchus or lung (principal); J43.9 Emphysema, unspecified
CPT/HCPCS: 71260; Q9967

== ENCOUNTER → 2023-08-08 | Outpatient (REF) | payer OTHER ==
[~2023-08-08] MED LIST changes: +DOXY-440 PO; -DOXY-444 PO; -ISOVUE-370 76% 100ML VIAL ONE
== END ==
LOC: M LAB REF 13:01
PROVIDERS: ATTEND Internal Medicine Pulmonary Disease
DX: J44.9 Chronic obstructive pulmonary disease, unspecified (principal)

== ENCOUNTER → 2023-10-20 | Outpatient (CLI) | payer OTHER ==
[~2023-10-20] MED LIST changes: +GASTROGRAFIN SOLUTION 30ML As Ordered ONE; +ISOVUE-370 76% 100ML VIAL As Ordered ONE
== END ==
LOC: M RAD 08:15
PROVIDERS: ATTEND Internal Medicine Hematology & Oncology
DX: C34.90 Malignant neoplasm of unspecified part of unspecified bronchus or lung (principal)
CPT/HCPCS: 71260; 74177; Q9963; Q9967

== ENCOUNTER → 2023-10-26 | Outpatient (REF) | payer OTHER ==
[~2023-10-26] MED LIST changes: -GASTROGRAFIN SOLUTION 30ML As Ordered ONE; -ISOVUE-370 76% 100ML VIAL As Ordered ONE
[2023-10-26 18:58] LABS: FREE T4 0.89 NG/DL (0.89-1.76)
[2023-10-26 19:49] LABS: THYROGLOBULIN ANTIBODY < 15.0 U/ML (<60.0); THYROID PEROXIDASE ANTIBODY 33 U/ML (<60.0); TOTAL T3 101.1 NG/DL (60.0-181.0)
[2023-10-31 22:23] LABS: TSH RECEPTOR ASSAY 1.26 IU/L (<=2.00)
== END ==
LOC: M LAB REF 16:42
PROVIDERS: ATTEND Nurse Practitioner Family
DX: E06.4 Drug-induced thyroiditis (principal)

== ENCOUNTER → 2023-11-07 | Outpatient (CLI) | payer OTHER ==
[~2023-11-07] VITALS: Ht 170.2 cm; Wt 58.6 kg
[~2023-11-07] MED LIST changes: +LIDOCAINE 1% MDV 20ML VIAL As Ordered ONE; +MIDAZOLAM INJ 2MG/2ML VIAL As Ordered ONE; +ceFAZolin 2 GM/D5W 50 ML IV BAG As Ordered ONE; +fentaNYL 100 MCG/2 ML INJECTION As Ordered ONE
[2023-11-07 14:45] VITALS: TEMP 99.3
[2023-11-07] MEDS: ceFAZolin SOD 2 GM in IV 1 EA IV ONE (15:18)
[2023-11-07 16:25] VITALS: BP 125/62; O2SAT 95
== END ==
LOC: M IRPRO 14:22
PROVIDERS: ATTEND Specialist
DX: C34.90 Malignant neoplasm of unspecified part of unspecified bronchus or lung (principal)
CPT/HCPCS: 36590; J0690; J2250; J3010

== ENCOUNTER → 2024-01-27 | Outpatient (CLI) | payer OTHER ==
[~2024-01-27] MED LIST changes: -LIDOCAINE 1% MDV 20ML VIAL As Ordered ONE; -MIDAZOLAM INJ 2MG/2ML VIAL As Ordered ONE; -ceFAZolin 2 GM/D5W 50 ML IV BAG As Ordered ONE; -fentaNYL 100 MCG/2 ML INJECTION As Ordered ONE
[2024-01-27 12:29] LABS: FREE T4 1.31 NG/DL (0.89-1.76); THYROID STIMULATING HORMONE 3.122 uIU/ML (0.55-4.78)
== END ==
LOC: M WUC 10:40
PROVIDERS: ATTEND Nurse Practitioner Family
DX: E06.4 Drug-induced thyroiditis (principal)

== ENCOUNTER → 2024-01-27 | Outpatient (CLI) | payer OTHER ==
[~2024-01-27] MED LIST changes: +ISOVUE-370 76% 100ML VIAL As Ordered ONE
== END ==
LOC: M RAD 12:34
PROVIDERS: ATTEND Specialist
DX: C34.90 Malignant neoplasm of unspecified part of unspecified bronchus or lung (principal); E06.4 Drug-induced thyroiditis; J43.9 Emphysema, unspecified; J98.19 Other pulmonary collapse
CPT/HCPCS: 36415; 71260; 84439; 84443; Q9967

== ENCOUNTER → 2024-07-25 | Outpatient (CLI) | payer OTHER | LOC: M RAD 09:30 | PROVIDERS: ATTEND Nurse Practitioner Women's Health | DX: C34.90 Malignant neoplasm of unspecified part of unspecified bronchus or lung (principal) | CPT/HCPCS: 71260; 74160; Q9967 ==

== ENCOUNTER → 2024-08-30 | Outpatient (CLI) | payer OTHER ==
[~2024-08-30] MED LIST changes: -ISOVUE-370 76% 100ML VIAL As Ordered ONE
== END ==
LOC: M PLARAD 07:51
PROVIDERS: ATTEND Orthopaedic Surgery
DX: S43.432A Superior glenoid labrum lesion of left shoulder, initial encounter (principal)

== ENCOUNTER → 2024-11-26 | Outpatient (CLI) | payer OTHER ==
[~2024-11-26] MED LIST changes: -AMIO200T49 PO; +AMIO200T54 PO; +ISOVUE-370 76% 100 ML VIAL As Ordered ONE
== END ==
LOC: M RAD 09:34
PROVIDERS: ATTEND Specialist
DX: C34.92 Malignant neoplasm of unspecified part of left bronchus or lung (principal)
CPT/HCPCS: 71260; Q9967

== ENCOUNTER → 2025-04-01 | Outpatient (CLI) | payer OTHER ==
[~2025-04-01] MED LIST changes: -ISOVUE-370 76% 100 ML VIAL As Ordered ONE; +JARD1TAB PO
== END ==
LOC: M RAD 09:57
DX: J98.4 Other disorders of lung (principal)

== ENCOUNTER → 2025-04-10 | Outpatient (CLI) | payer OTHER ==
[~2025-04-10] MED LIST changes: +ISOVUE-370 76% 100 ML VIAL ONE
== END ==
LOC: M PLAIMG 09:57
DX: C34.90 Malignant neoplasm of unspecified part of unspecified bronchus or lung (principal); J43.2 Centrilobular emphysema
CPT/HCPCS: 71260; 74177; Q9967